=== PATIENT | male | born 1955 | race Caucasian/White ===

== ENCOUNTER 2016-11-09 13:01 | Inpatient (IN) | payer OTHER ==
[2016-11-09] MEDS ORDERED: Aspirin Low Dose CHEW TAB* 81 MG PO ONE (13:28)
[2016-11-09 14:00] LABS: Hematocrit 44 % (42-52); Hemoglobin 14.6 g/dl (14.0-18.0); Mean Corpuscular HGB Conc 34 g/dl (31-36); Mean Corpuscular Hemoglobin 31 pg (27-31); Mean Corpuscular Volume 93 fL (80-94); Mean Platelet Volume 8 um3 (7.4-10.4); Red Blood Count 4.68 10^6/ul (4.0-5.4); Red Cell Distribution Width 14 % (10.5-15); White Blood Count 10.6 10^3/ul (3.5-10.8)
[2016-11-09 14:17] LABS: Albumin 4.2 g/dL (3.2-5.2); BUN/Creatinine Ratio 15.7 (8-20); Calcium 9.8 mg/dL (8.6-10.3); EGFR African American 65.8 (>60); EGFR Non-African American 51.2 (>60); Globulin 2.9 g/dL (2-4); Potassium 4.2 mmol/L (3.5-5.0); Total Bilirubin 0.6 mg/dL (0.2-1.0); Total Protein 7.1 g/dL (6.4-8.9)
--- NOTE | 2016-11-09 14:20 | RAD ---
Indication: Weakness. Single frontal view of the chest performed at 1405 hours was reviewed. No prior study is available for comparison.. No mediastinal shift is noted. Heart is of normal size and configuration. Lung gil appear clear. Lung gil appear hyperinflated IMPRESSION: NO ACTIVE CARDIOPULMONARY DISEASE IS NOTED.
[2016-11-09] MEDS ORDERED: NS 0.9% 1000 ML* 1,000 ML IV ONE (14:34)
[2016-11-09] MEDS ORDERED: Iodixanol* (CONTRAST) 320 MG/ML 100 ML SDV IV ONE (14:36)
[2016-11-09] MEDS ORDERED: Salsalate TAB* 500 MG PO PRN (15:09)
[2016-11-09] MEDS ORDERED: BALSALAZIDE SODIUM 750 MG PO PRN (15:09)
[2016-11-09] MEDS ORDERED: Dextrose 50% Syringe 50 ML* 25 GM/50 ML SYRINGE IV PUSH PRN (15:12)
--- NOTE | 2016-11-09 15:25 | RAD ---
HISTORY: Syncope COMPARISONS: None TECHNIQUE: Multiple contiguous axial CT scans were obtained of the head without intravenous contrast. FINDINGS: HEMORRHAGE/INFARCT: There is no hemorrhage or acute infarct. MASSES/SHIFT: There is no mass or shift. EXTRA-AXIAL SPACES: There are no extra-axial fluid collections. SULCI AND VENTRICLES: The sulci and ventricles are normal in size and position for the patient's stated age. CEREBRUM: There are no focal parenchymal abnormalities. BRAINSTEM: There are no focal parenchymal abnormalities. CEREBELLUM: There are no focal parenchymal abnormalities. VESSELS: The vessels are grossly normal. PARANASAL SINUSES: The paranasal sinuses are clear. ORBITS: The orbits are unremarkable. BONES AND SOFT TISSUE: No bone or soft tissue abnormalities are noted. OTHER: None IMPRESSION: NO ACUTE INTRACRANIAL PATHOLOGY.
--- NOTE | 2016-11-09 15:37 | RAD ---
INDICATION: Chest pain. Short of breath. Evaluate for pulmonary embolus. COMPARISON: None TECHNIQUE: Axial source images were obtained from the thoracic inlet to the hemidiaphragms following administration of 94 mL Vis[address] angiographic technique was utilized. Coronal and sagittal reconstructed images were acquired. CHEST FINDINGS: Neck/thyroid: The visualized neck to include the thyroid appear normal. Chest wall: There are no acute abnormalities of the bony thorax or chest wall. There is no supraclavicular, infraclavicular, or axillary lymphadenopathy. Lungs : There are no pulmonary parenchymal masses or infiltrates. The pulmonary interstitium appears normal. There are no endobronchial lesions. Cardiomediastinal structures: There is no CT evidence of acute pulmonary embolic disease. The heart is normal in size. There is no pericardial effusion. There is no evidence of aortic aneurysm or dissection. There is no mediastinal or hilar adenopathy. The esophagus appears normal. Pleura : There are no pleural-based masses or effusions. Other: There is a small hiatal hernia.. IMPRESSION: NO CT EVIDENCE OF ACUTE PULMONARY EMBOLIC DISEASE.
[2016-11-09 16:49] LABS: Troponin I 0.01 ng/mL (<0.04)
[2016-11-09] MEDS ORDERED: Warfarin TAB(*) 5 MG PO SCH (17:00)
[2016-11-09] MEDS: Insulin LISPRO* 1 UNITS UNIT SUBCUT SCH ×2 (18:20→20:42)
[2016-11-09] MEDS: NS 0.9% 1000 ML* 1,000 ML IV SCH (19:31)
--- NOTE | 2016-11-09 20:19 | HP ---
CC: KIMMY Snyder, phone number [phone], fax number [phone]* HISTORY AND PHYSICAL: DATE OF ADMISSION: 11/09/16 CHIEF COMPLAINT: "I almost passed out." HISTORY OF PRESENT ILLNESS: The patient is a 61-year-old gentleman, who says he got pay this morning, then went to the store, and then felt he would try to mow his lawn before the rain came. He started mowing at about 10 a.m. and stopped at about 11.15 when the mower ran out of gas. He had only had a light breakfast. He go and get something to eat, then finish the job after that. He says he bent over to put his mask on the mower and then started feeling a little lightheaded and weak. He then went inside and asked his to make him a peanut butter and jelly sandwich. He tried to eat it, but something was not right. He suddenly felt nauseated and sick and had the dry heaves. He then vomited up his breakfast. His then put cold compresses on his head. He lied down on the couch and the room started spinning. He then vomited up the second time. He does not thing that he ever actually passed out but he just area. He denied any chest pain or shortness of breath or palpitations. Denies any fevers or chills. The patient currently feels well with no complaints. PAST MEDICAL HISTORY: Significant for ulcerative colitis, chronic DVT, hypertension, diet-controlled diabetes, and hypothyroidism. PAST SURGICAL HISTORY: He has no past surgical history. MEDICATIONS: His current medications are as follows: 1. Coumadin 5 mg Wednesday and Wednesday; 10 mg Wednesday, Wednesday, Wednesday, , and Wednesday. 2. Lisinopril 10 mg daily. 3. Synthroid 137 mcg daily. 4. Simvastatin 20 mg at bedtime. 5. Multivitamin 1 tablet daily. 6. Vitamin C 500 mg daily. 7. Salsalate tab 500 mg twice daily. 8. Colazal 2250 twice a day as needed. 9. Aspirin 81 mg daily. ALLERGIES: He has an allergy/adverse reaction to SULFASALAZINE. FAMILY HISTORY: Mother is alive at age 86, has a pacemaker and defibrillator. Father in his 80s, but he does not know him. SOCIAL HISTORY: He quit tobacco years ago. He used to smoke a pipe. No alcohol, quit that as well. No recreational drug use. 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 He is 3 times. His current , Claudia Ceballos , is his healthcare proxy. He has two children, a daughter and a son who he does not see. REVIEW OF SYSTEMS: A 14-point review of systems is completed with the patient. All pertinent positives and negatives are in the history of present illness, otherwise is negative. PHYSICAL EXAMINATION GENERAL: A pleasant gentleman lying in bed, in no acute distress. VITAL SIGNS: Blood pressure 114/72, pulse oxygenation 99% on 2 L, respiratory rate 15 breaths per minute, heart rate 73 beats per minute, temperature is 98.4 degrees. HEENT: Normocephalic and atraumatic. Pupils equal and reactive to light. Moist mucous membranes. NECK: Supple. No JVD, bruits, palpable thyroid, or lymphadenopathy. CHEST: Clear to auscultation and percussion bilaterally. CARDIOVASCULAR: S1, S2 appreciated. ABDOMEN: Positive bowel sounds in all 4 quadrants. Soft, nontender, and nondistended. EXTREMITIES: No cyanosis, clubbing, or edema. +2 peripheral pulses bilaterally. NEURO: Alert and oriented x3. Moves all extremities. SKIN: No rashes or abnormalities. DIAGNOSTIC STUDIES/LAB DATA: White count 10.6, hemoglobin 14.6, hematocrit 44 , platelets 192. Sodium 136, potassium 4.2, chloride 105, CO2 23, BUN 22, creat 1.40, glucose 162, lactic acid is 2.9. INR is 2.03. Chest x-ray was interpreted by Radiology as no active cardiopulmonary disease is noted. CTA of the chest was interpreted by Radiology as no CT evidence of acute pulmonary embolic disease. Brain CT was interpreted by Radiology as no acute intracranial pathology. EKG shows normal sinus rhythm at 82 beats per minute, PVCs, normal axis, first- degree AV block, no acute ST-T wave changes. ASSESSMENT AND PLAN: 1. Near syncope. I think the patient was probably just dehydrated and felt nauseated after working outside and having a light breakfast. Nevertheless, I still think he needs to be observed overnight on telemetry. We will rule him out for a myocardial infarction with serial troponins. We will get a transthoracic echo in the morning. If these all looks well, he can likely go home tomorrow. We will also hydrate him with normal saline 100 cc an hour. 2. Ulcerative colitis. Stable, continue current regimen. 3. Hypothyroidism. Stable, continue Synthroid. 4. Diabetes mellitus. Diet controlled, placed on fingersticks with sliding scale insulin. Check hemoglobin A1c. 5. DVT prophylaxis. He has chronic deep venous thrombosis and he is on Coumadin. Continue Coumadin. 6. FEN. Consistent carb diet. 7. The patient is a full code. TIME SPENT: Over 75 minutes was spent on this H and P; more than 40 minutes of which was spent in direct [id number] contact with the patient in evaluation, physical exam, counseling, and coordination of care. [id number] #: [id number] MTDD
[2016-11-09] MEDS: Atorvastatin* 10 MG TAB PO SCH (20:48)
[2016-11-10] MEDS: Levothyroxine TAB* 137 MCG TAB PO SCH (06:02)
[2016-11-10] MEDS: NS 0.9% 1000 ML* 1,000 ML IV SCH (07:12)
[2016-11-10] MEDS: Insulin LISPRO* 1 UNITS UNIT SUBCUT SCH ×4 (07:25→20:51)
[2016-11-10] MEDS ORDERED: Perflutren Lipid Microsphere* 3 ML VIAL ONE (08:45)
[2016-11-10] MEDS: Lisinopril TAB* 10 MG PO SCH (09:28)
[2016-11-10] MEDS: Multivitamins/Minerals TAB PO SCH (09:28)
[2016-11-10] MEDS: Ascorbic Acid TAB* 500 MG PO SCH (09:28)
[2016-11-10] MEDS: Aspirin EC Low Dose* 81 MG TAB.EC PO SCH (09:29)
--- NOTE | 2016-11-10 10:49 | ECHO ---
Patient: LIZZ BUTTS [facility] Rec#: [id number] : 1955 Date: 11/10/2016 Age: 61y Height: 193 cm / 76.0 in Weight: 119.3 kg / 262.9 lbs Sex: M BSA: 2.49 Room#: 452 Admit Date#: 11/09/2016 Type: Inpatient Referring: Geovanny Alanis MD Reading: Lj Knutson MD Spinning Machine Operator: Juliet Marquis RN RDCS CC: Shaka Lin MD Transthoracic Echocardiogram Indication: Syncope BP: 120/66 HR: 64 Rhythm: NSR with PVCs Findings History: HTN, DM, hypothyroidism, ulcerative colitis, chronic lower extremity DVT, former smoker Technical Comments: The study is technically limited due to poor apical windows. The study is technically limited due to patient body habitus. The study is technically limited due to the patient's smoking history. Completed at 0940. Left Ventricle: The left ventricular chamber size is normal. There is diffuse global hypokinesis of the left ventricle. There is mild to moderately decreased left ventricular systolic function. The estimated ejection fraction is 40-45%. There is no consistent Doppler evidence of clinically significant diastolic dysfunction. Left Atrium: The left atrium is mildly dilated. Right Ventricle: The right ventricular cavity size is normal. The right ventricular global systolic function is low normal. Right Atrium: The right atrium is mildly dilated. Aortic Valve: The aortic valve is trileaflet. The aortic valve leaflets are mildly thickened. There is aortic annular calcification. There is a trace of aortic regurgitation. There is no evidence of aortic stenosis. Mitral Valve: The mitral valve leaflets are mildly thickened. There is prolapse of the anterior leaflet of the mitral valve. There is mild to moderate mitral regurgitation. The mitral regurgitant jet is posteriorly directed. The mitral regurgitant jet is laterally directed. There is no evidence of mitral stenosis. Tricuspid Valve: The tricuspid valve leaflets are normal. There is trace tricuspid regurgitation. Unable to estimate the right ventricular systolic pressure. There is no tricuspid stenosis. Pulmonic Valve: The pulmonic valve structure is not well visualized. There is a trace pulmonic regurgitation. There is no pulmonic stenosis. Pericardium: There is no significant pericardial effusion. A pericardial fat pad is visualized. Aorta: There is no dilatation of the ascending aorta. There is no dilatation of the aortic arch. There is no dilation of the aortic root. Pulmonary Artery: The main pulmonary artery is not well visualized. Venous: The inferior vena cava appears normal in size. There is a greater than 50% respiratory change in the inferior vena cava dimension. Contrast: Definity was used to optimize study. A total of 4 ml of Definity was administered IV to enhance endocardial border definition. Conclusions Mild to moderate global hypokinesis of the left ventricle is observed. The visually estimated ejection fraction is 40-45%. The left atrium is mildly dilated. There is prolapse of the anterior leaflet of the mitral valve. There is mild to moderate mitral regurgitation. The mitral regurgitant jet is posteriorly directed. The mitral regurgitant jet is laterally directed. There is trace tricuspid regurgitation. The right atrium is mildly dilated. There is a trace of aortic regurgitation. PVCs are noted during the study. No reports of prior studies are offered for comparison. Measurements Name Value Normal Range RVIDd (AP) 2D 2.9 cm (0.9 - 2.6) RAd ISD 4CH 5.3 cm (3.4 - 4.9) RA (A4C)W 4.6 cm (2.9 - 4.6) IVSd (2D) 1 cm (0.6 - 1) LVPWd (2D) 1 cm (0.6 - 1) LVIDd (2D) 5.3 cm (3.6 - 5.4) LVIDs (2D) 4.2 cm - LV FS (2D) 21 % (25 - 45) Aortic Annulus 2.5 cm (1.4 - 2.6) Ao root diameter (2D) 3.3 cm (2.1 - 3.5) Ascending Ao 3 cm (2.1 - 3.4) Aortic arch 2.7 cm (1.8 - 3.4) LA dimension (AP) 2D 3.2 cm (2.3 - 3.8) LAd ISD 4CH 5.2 cm (2.9 - 5.3) LA ISD 4CH W 5 cm (2.5 - 4.5) Name Value Normal Range LA ESV SP 4CH (A/L) 91 ml - LA ESV SP 2CH (A/L) 73 ml - LA ESV BP (A/L) 88 ml - LA ESV BP (A/L) index 35.2 ml/m2 - LA ESV SP 4CH (MOD) 85 ml - LA ESV SP 2CH (MOD) 68 ml - Name Value Normal Range MV E-wave Vmax 0.97 m/sec - MV deceleration time 222 msec - MV A-wave Vmax 1 m/sec - MV E:A ratio 0.96 ratio - LV septal e' Vmax 0.09 m/sec - LV lateral e' Vmax 0.11 m/sec - LV E:e' septal ratio 10.8 ratio - LV E:e' lateral ratio 8.8 ratio - Name Value Normal Range AV Vmax 1.4 m/sec - AV VTI 30.9 cm - AV peak gradient 7.8 mmHg - AV mean gradient 3.9 mmHg - LVOT Vmax 0.92 m/sec - LVOT VTI 20 cm - LVOT peak gradient 3.4 mmHg - LVOT mean gradient 2.1 mmHg - FINA Vmax 0.92 m/sec - Name Value Normal Range IVC diameter 1.8 cm - Name Value Normal Range PV Vmax 0.71 m/sec -
--- NOTE | 2016-11-10 16:46 | PN ---
Subjective Date of Service: 11/10/16 Interval History: pt feels well today, but recalled that it was a second episode of exertional near syncope in the past month Objective Active Medications: Ascorbic Acid (Vitamin C Tab*) 500 mg PO DAILY COUNT INCLUDES THE [facility] Last Admin: 11/10/16 09:28 Dose: 500 mg Aspirin (Aspirin Ec Low Dose*) 81 mg PO DAILY COUNT INCLUDES THE [facility] Last Admin: 11/10/16 09:29 Dose: 81 mg Atorvastatin Calcium (Lipitor*) 10 mg PO BEDTIME COUNT INCLUDES THE [facility] Last Admin: 11/09/16 20:48 Dose: 10 mg Balsalazide (Colazal Cap(Nf)) 2,250 mg PO BID PRN; Protocol PRN Reason: PAIN - ABDOMINAL Dextrose (D50w Syringe 50 Ml*) 12.5 gm IV PUSH .FOR FS < 60 - SS PRN PRN Reason: FS < 60 Insulin Human Lispro (Humalog*) 0 units SUBCUT ACHS COUNT INCLUDES THE [facility] PRN Reason: Protocol Last Admin: 11/10/16 16:40 Dose: Not Given Levothyroxine Sodium (Synthroid Tab*) 137 mcg PO 0600 COUNT INCLUDES THE [facility] Last Admin: 11/10/16 06:02 Dose: 137 mcg Lisinopril (Prinivil Tab*) 10 mg PO DAILY COUNT INCLUDES THE [facility] Last Admin: 11/10/16 09:28 Dose: 10 mg Multivitamins/Minerals (Theragran/Minerals Tab*) 1 tab PO DAILY COUNT INCLUDES THE [facility] Last Admin: 11/10/16 09:28 Dose: 1 tab Salsalate (Disalcid*) 500 mg PO BID PRN PRN Reason: PAIN/INFLAMMATION Warfarin Sodium (Coumadin Tab(*)) 5 mg PO MOSA COUNT INCLUDES THE [facility] PRN Reason: Protocol Last Admin: 11/09/16 17:07 Dose: 5 mg Warfarin Sodium (Coumadin Tab(*)) 10 mg PO SuTuWeThFr@1700 COUNT INCLUDES THE [facility] PRN Reason: Protocol Last Admin: 11/10/16 16:37 Dose: 10 mg Vital Signs 11/09/16 11/10/16 11/10/16 19:31 00:49 04:37 Temperature 98.5 F 97.9 F 97.8 F Pulse Rate 79 71 65 Respiratory 17 16 16 Rate Blood Pressure 137/64 111/56 120/66 (mmHg) O2 Sat by Pulse 97 100 100 Oximetry 11/10/16 11/10/16 11/10/16 07:25 09:18 09:47 Temperature 97 F Pulse Rate 77 77 Respiratory 15 15 15 Rate Blood Pressure 120/74 120/74 (mmHg) O2 Sat by Pulse 100 100 Oximetry 11/10/16 11/10/16 11:30 16:00 Temperature 97.5 F 98.0 F Pulse Rate 70 76 Respiratory 16 17 Rate Blood Pressure 109/82 127/77 (mmHg) O2 Sat by Pulse 97 98 Oximetry Oxygen Devices in Use Now: None Appearance: 61 yo m in nAd, aAOx3 Eyes: No Scleral Icterus, PERRLA Ears/Nose/Mouth/Throat: NL Teeth, Lips, Gums, Mucous Membranes Moist Neck: NL Appearance and Movements; NL JVP, Trachea Midline Respiratory: Symmetrical Chest Expansion and Respiratory Effort, Clear to Auscultation Cardiovascular: NL Sounds; No Murmurs; No JVD, RRR Abdominal: NL Sounds; No Tenderness; No Distention, No Hepatosplenomegaly Lymphatic: No Cervical Adenopathy Extremities: No Edema Skin: No Rash or Ulcers, No Nodules or Sclerosis Neurological: Alert and Oriented x 3, NL Muscle Strength and Tone Result Diagrams: 11/09/16 13:42 11/09/16 13:42 Additional Lab and Data: Lab Results 11/09/16 11/09/16 11/09/16 Range/Units 13:42 13:42 13:42 WBC 10.6 (3.5-10.8) 10^3/ul RBC 4.68 (4.0-5.4) 10^6/ul Hgb 14.6 (14.0-18.0) g/dl Hct 44 (42-52) % MCV 93 (80-94) fL MCH 31 (27-31) pg MCHC 34 (31-36) g/dl RDW 14 (10.5-15) % Plt Count 192 (150-450) 10^3/ul MPV 8 (7.4-10.4) um3 Neut % (Auto) 87.5 H (38-83) % Lymph % (Auto) 7.3 L (25-47) % [place] % (Auto) 4.2 (1-9) % Eos % (Auto) 0.6 (0-6) % Baso % (Auto) 0.4 (0-2) % Absolute Neuts (auto) 9.3 H (1.5-7.7) 10^3/ul Absolute Lymphs (auto) 0.8 L (1.0-4.8) 10^3/ul Absolute Monos (auto) 0.4 (0-0.8) 10^3/ul Absolute Eos (auto) 0.1 (0-0.6) 10^3/ul Absolute Basos (auto) 0 (0-0.2) 10^3/ul Absolute Nucleated RBC 0.01 10^3/ul Nucleated RBC % 0.1 Sodium 136 (133-145) mmol/L Potassium 4.2 (3.5-5.0) mmol/L Chloride 105 (101-111) mmol/L Carbon Dioxide 23 (22-32) mmol/L Anion Gap 8 (2-11) mmol/L BUN 22 (6-24) mg/dL Creatinine 1.40 H (0.67-1.17) mg/dL Est GFR ( Amer) 65.8 (>60) Est GFR (Non-Af Amer) 51.2 (>60) BUN/Creatinine Ratio 15.7 (8-20) Glucose 162 H (70-100) mg/dL Lactic Acid 2.9 H* (0.5-2.0) mmol/L Calcium 9.8 (8.6-10.3) mg/dL Total Bilirubin 0.60 (0.2-1.0) mg/dL AST 16 (13-39) U/L ALT 10 (7-52) U/L Alkaline Phosphatase 43 (34-104) U/L Troponin I 0.00 (<0.04) ng/mL Total Protein 7.1 (6.4-8.9) g/dL Albumin 4.2 (3.2-5.2) g/dL Globulin 2.9 (2-4) g/dL Albumin/Globulin Ratio 1.4 (1-3) Assess/Plan/Problems-Billing Assessment: 61 yo m with h/o DM diet controlled, U.colitis, HTN, presents with exertional near syncope - Patient Problems (1) Near syncope Comment: recurrent. EF of 40-45% concerning for CAD. consulted Dr. Rodriuges who recommended stress test in AM (2) HTN (hypertension) Comment: controlled, cont ACEI (3) Ulcerative colitis Comment: not in exacerbation, cont outpatient tx. (4) DM type 2 (diabetes mellitus, type 2) Comment: diet controlled (5) DVT prophylaxis Comment: cont coumadin , INR therapeutic Status and Disposition: OBV switched to inpatient due to need for another night stay and stress tests in AM.
[2016-11-10] MEDS ORDERED: Warfarin TAB(*) 10 MG PO SCH (17:00)
[2016-11-10] MEDS: Atorvastatin* 10 MG TAB PO SCH (20:50)
--- NOTE | 2016-11-10 22:54 | CONS ---
CARDIOLOGY CONSULTATION: DATE OF CONSULT: 11/10/16 INDICATION FOR CONSULTATION: Chest pain, abnormal echocardiogram. FAMILY PHYSICIAN: Danni Peters, Family Nurse Practitioner. HISTORY OF PRESENT ILLNESS: The patient came to the hospital because of a syncopal episode at home. The patient denies any history of cardiac abnormality. The patient does have a history of diabete s and hypertension. The patient states that yesterday morning, he was mowing his lawn. He was tryi ng to hurry because there was rain that was coming in the near future. The patient got done with hi s mowing. He put the mower away. He went inside. He felt warm and uncomfortable and sat down at th e kitchen table. He was given a sandwich by his . He says he ate about half of the sandwich an d then was being shook awake by his . The patient's described that he passed out at the ta ble. The patient did not have any significant prodrome with this episode of syncope. He denied any chest pain. He denied any shortness of breath. He denied any nausea or vomiting prior to it. How er, afterwards, he had significant vomiting in the kitchen. At that time, the ambulance was called and he was brought to the emergency room. The patient denies any cardiac history. PAST MEDICAL HISTORY: Significant for ulcerative colitis, chronic DVTs, hypertension, diabetes, hyp othyroidism. PAST SURGICAL HISTORY: None. OUTPATIENT MEDICATIONS: 1. Coumadin as directed. 2. Lisinopril 10 mg a day. 3. Synthroid 137 mcg a day. 4. Simvastatin 20 mg a day. 5. Multivitamin a day. 6. Salicylate 500 mg twice a day. 7. Colazal twice a day. 8. Aspirin 81 mg a day. ALLERGIES: He is intolerant of SULFASALAZINE. FAMILY HISTORY: His mother is alive at 86 with no coronary artery disease. Father in his 80s. SOCIAL HISTORY: The patient denies tobacco. He quit many years ago. He denies alcohol use, denies any recreational drug use. 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 PHYSICAL EXAM: Height is 64 inches, weight 263 pounds, temperature 97, heart rate is 77, respirator y rate is 15, oxygen saturation 100 on room air, blood pressure 120/74. Sclerae anicteric. Orophar ynx is pink without erythema. Carotids are 2+ without bruits. JVD is normal. Thyroid is normal. Cardiac Exam: S1, S2. Distant heart sounds without any murmurs, rubs, or gallops. Lungs are clear to auscultation bilaterally. No dullness to percussion. Abdomen is obese, soft, nontender, nondist ended with normal active bowel sounds. Extremities: Show no edema. He has 2+ pulses throughout. The patient is awake, alert, and oriented. He moves all four extremities equally. DIAGNOSTIC STUDIES/LAB DATA: CBC within normal limits. Chemistries within normal limits. BUN 22, creatinine 1.4. AST and ALT within normal limits. TSH 0.68. EKG demonstrates normal sinus rhythm with nonspecific T wave abnormalities. He does have two PVCs. His EKG today demonstrate no dynamic changes. Echocardiogram: The patient had an echocardiogram today, which demonstrated mildly reduced LV systo lic function with an ejection fraction of 40% to 45%, global hypokinesis, mild to moderate mitral re gurgitation, trace tricuspid regurgitation. No previous echocardiograms for comparison. IMPRESSION: This is a 61-year-old male with a history of diabetes, hypertension, who came to the [facility] because of a syncopal episode at home. The patient states that he clearly went to the table, sat down, ate a sandwich and then had a syncop al episode. His syncopal episode was not with exertion. The patient describes a similar episode a month ago where he was out mowing his lawn, put the mower away, went up into his deck and started feeling uncomfortable and lay down on the deck until his sym ptoms passed. He did not have a true syncopal episode at that time. The patient has not had any an ginal-type symptoms. At this point, I am not exactly sure what the cause of his cardiomyopathy is. I think the patient i s at slightly increased risk for cardiac arrhythmia, although I do not think that is the cause of hi s syncopal episode. Overall, I think this is just overexertion in a warm muggy climate as yesterday morning was. RECOMMENDATION: My recommendation is that he should undergo an exercise nuclear stress test because of his cardiomyopathy and an abnormal EKG. Further recommendations pending the results of his stre ss test. [id number]/[facility] #: [id number]
[2016-11-11] MEDS: Levothyroxine TAB* 137 MCG TAB PO SCH (06:09)
[2016-11-11] MEDS: Lisinopril TAB* 10 MG PO SCH (07:43)
[2016-11-11] MEDS: Insulin LISPRO* 1 UNITS UNIT SUBCUT SCH ×4 (07:43→20:47)
[2016-11-11] MEDS ORDERED: Lisinopril TAB* 10 MG PO SCH (07:44)
[2016-11-11] MEDS: Multivitamins/Minerals TAB PO SCH (07:47)
[2016-11-11] MEDS: Aspirin EC Low Dose* 81 MG TAB.EC PO SCH (07:47)
[2016-11-11] MEDS: Ascorbic Acid TAB* 500 MG PO SCH (07:48)
--- NOTE | 2016-11-11 12:16 | RAD ---
Edited for charges. Indication: Syncope, cardiomyopathy. Myocardial perfusion scan was performed utilizing 1 day protocol. 10.9 mCi of technetium 99m tetrofosmin was injected for the rest portion of the study. Treadmill stress study was performed and 25.1 mCi of technetium 99m tetrofosmin was injected for the stress portion of the study. The maximum heart rate achieved was 90% of maximum predicted value. There is inferior wall photopenia which appears to correct on the attenuated corrected images and is consistent with diaphragmatic attenuation. There is no evidence of any fixed or reversible perfusion defects otherwise. The ejection fraction at stress is 44 %. Evaluation of wall motion demonstrates global hypokinesis. IMPRESSION: Diaphragmatic attenuation is noted. No definite reversible perfusion defects identified. Slightly decreased ejection fraction of 44%. ASSESSMENT: Intermediate risk Based on imaging criteria from ACC/AHA 2002 Guideline Update for the Management of Patients With Chronic Stable Angina Table 23. Noninvasive Risk Stratification. Reference. MTDD
[2016-11-11] MEDS: Metoprolol Tartrate TAB* 25 MG PO SCH ×2 (13:12→19:25)
--- NOTE | 2016-11-11 14:53 | PN ---
Subjective Date of Service: 11/11/16 Interval History: Pt feels well, no cP, dizziness. Seen after a stress tests. With exercise noted more PVC's and 5 beats of V. Tach in recovery. Objective Active Medications: Ascorbic Acid (Vitamin C Tab*) 500 mg PO DAILY [facility] Last Admin: 11/11/16 07:48 Dose: 500 mg Aspirin (Aspirin Ec Low Dose*) 81 mg PO DAILY [facility] Last Admin: 11/11/16 07:47 Dose: 81 mg Atorvastatin Calcium (Lipitor*) 10 mg PO BEDTIME [facility] Last Admin: 11/10/16 20:50 Dose: 10 mg Balsalazide (Colazal Cap(Nf)) 2,250 mg PO BID PRN; Protocol PRN Reason: PAIN - ABDOMINAL Dextrose (D50w Syringe 50 Ml*) 12.5 gm IV PUSH .FOR FS < 60 - SS PRN PRN Reason: FS < 60 Insulin Human Lispro (Humalog*) 0 units SUBCUT ACHS [facility] PRN Reason: Protocol Last Admin: 11/11/16 11:39 Dose: Not Given Levothyroxine Sodium (Synthroid Tab*) 137 mcg PO 0600 [facility] Last Admin: 11/11/16 06:09 Dose: 137 mcg Metoprolol Tartrate (Lopressor Tab*) 25 mg PO Q6H [facility] Last Admin: 11/11/16 13:12 Dose: 25 mg Multivitamins/Minerals (Theragran/Minerals Tab*) 1 tab PO DAILY [facility] Last Admin: 11/11/16 07:47 Dose: 1 tab Salsalate (Disalcid*) 500 mg PO BID PRN PRN Reason: PAIN/INFLAMMATION Vital Signs 11/10/16 11/10/16 11/10/16 19:21 20:00 20:26 Temperature 98.3 F Pulse Rate 71 Respiratory 17 Rate Blood Pressure 132/77 (mmHg) O2 Sat by Pulse 98 Oximetry 11/10/16 11/11/16 11/11/16 23:50 04:08 07:35 Temperature 98.0 F 97.6 F 97.4 F Pulse Rate 70 62 75 Respiratory 16 16 16 Rate Blood Pressure 103/62 117/68 102/47 (mmHg) O2 Sat by Pulse 98 99 100 Oximetry 11/11/16 11/11/16 07:40 11:33 Temperature 98.2 F Pulse Rate 70 Respiratory 16 16 Rate Blood Pressure 125/82 (mmHg) O2 Sat by Pulse 98 Oximetry Oxygen Devices in Use Now: None Appearance: 61 yo M in nAD, aAOx3 Eyes: No Scleral Icterus, PERRLA Ears/Nose/Mouth/Throat: NL Teeth, Lips, Gums, Mucous Membranes Moist Neck: NL Appearance and Movements; NL JVP, Trachea Midline Respiratory: Symmetrical Chest Expansion and Respiratory Effort, Clear to Auscultation Cardiovascular: NL Sounds; No Murmurs; No JVD, No Edema Abdominal: NL Sounds; No Tenderness; No Distention, No Hepatosplenomegaly Lymphatic: No Cervical Adenopathy Extremities: No Edema, No Clubbing, Cyanosis Skin: No Rash or Ulcers, No Nodules or Sclerosis Neurological: Alert and Oriented x 3, NL Muscle Strength and Tone Result Diagrams: 11/09/16 13:42 11/09/16 13:42 Additional Lab and Data: Lab Results 11/09/16 11/09/16 11/09/16 Range/Units 13:42 13:42 13:42 WBC 10.6 (3.5-10.8) 10^3/ul RBC 4.68 (4.0-5.4) 10^6/ul Hgb 14.6 (14.0-18.0) g/dl Hct 44 (42-52) % MCV 93 (80-94) fL MCH 31 (27-31) pg MCHC 34 (31-36) g/dl RDW 14 (10.5-15) % Plt Count 192 (150-450) 10^3/ul MPV 8 (7.4-10.4) um3 Neut % (Auto) 87.5 H (38-83) % Lymph % (Auto) 7.3 L (25-47) % [place] % (Auto) 4.2 (1-9) % Eos % (Auto) 0.6 (0-6) % Baso % (Auto) 0.4 (0-2) % Absolute Neuts (auto) 9.3 H (1.5-7.7) 10^3/ul Absolute Lymphs (auto) 0.8 L (1.0-4.8) 10^3/ul Absolute Monos (auto) 0.4 (0-0.8) 10^3/ul Absolute Eos (auto) 0.1 (0-0.6) 10^3/ul Absolute Basos (auto) 0 (0-0.2) 10^3/ul Absolute Nucleated RBC 0.01 10^3/ul Nucleated RBC % 0.1 Sodium 136 (133-145) mmol/L Potassium 4.2 (3.5-5.0) mmol/L Chloride 105 (101-111) mmol/L Carbon Dioxide 23 (22-32) mmol/L Anion Gap 8 (2-11) mmol/L BUN 22 (6-24) mg/dL Creatinine 1.40 H (0.67-1.17) mg/dL Est GFR ( Amer) 65.8 (>60) Est GFR (Non-Af Amer) 51.2 (>60) BUN/Creatinine Ratio 15.7 (8-20) Glucose 162 H (70-100) mg/dL Lactic Acid 2.9 H* (0.5-2.0) mmol/L Calcium 9.8 (8.6-10.3) mg/dL Total Bilirubin 0.60 (0.2-1.0) mg/dL AST 16 (13-39) U/L ALT 10 (7-52) U/L Alkaline Phosphatase 43 (34-104) U/L Troponin I 0.00 (<0.04) ng/mL Total Protein 7.1 (6.4-8.9) g/dL Albumin 4.2 (3.2-5.2) g/dL Globulin 2.9 (2-4) g/dL Albumin/Globulin Ratio 1.4 (1-3) Assess/Plan/Problems-Billing Assessment: 61 yo m with h/o DM diet controlled, U.colitis, HTN, presents with exertional near syncope - Patient Problems (1) Near syncope Comment: recurrent. EF of 40-45% concerning for CAD. consulted Dr. Lee who recommended stress test . Stress on 11/11/16 showed EF 44%, no reversible ischemia, but increased PVC's and short bursts of V. tach in recovery period. D/w Dr. Matthews who is considering cath. The timing of cath depends on this if PVC's can be better controlled with lopressor in the next 24H. If the PVC's are resolving with the tx with lopressor , pt potentially could go home with recommendation for outpatient cath [facility] the [place] [facility]. If he continues to have PVC's despite BB, then he will need to be monitored till cath can be done. At that point due to pt 's problems with inusrance and need of preapproval of procedures , pt may benfit from transfer to [facility] for further management. Coumadin held due to possible need for cath in the near future (2) NSVT (nonsustained ventricular tachycardia) Comment: episodes of frequent PVC's and V. tach bursts of 4-5 beats. Lytes-rechecking Started lopressor 25 mg Q6PO to control ectopy (3) HTN (hypertension) Comment: controlled, holding ACEI in light of starting lopressor (4) Ulcerative colitis Comment: not in exacerbation, cont outpatient tx. (5) DM type 2 (diabetes mellitus, type 2) Comment: diet controlled HbA1C 6.1 (6) Elevated serum creatinine Comment: Chronicity? May have been elevated due to dehydration at admission recheck creat today. (7) DVT prophylaxis Comment: INR therapeutic yesterday. coumadin held on 11/11/16 in anticipation of cath Status and Disposition: inpatient
[2016-11-11 15:16] LABS: BUN/Creatinine Ratio 12.5 (8-20); Calcium 9.6 mg/dL (8.6-10.3); EGFR African American 92.8 (>60); EGFR Non-African American 72.1 (>60); Magnesium 1.7 mg/dL (1.9-2.7); Potassium 3.8 mmol/L (3.5-5.0)
[2016-11-11] MEDS ORDERED: Magnesium Sulfate 2 GM IV* 2 GM/50 ML BAG IVPB ONE (16:00)
--- NOTE | 2016-11-11 20:19 | PN ---
Subjective Date of Service: 11/11/16 - CC: syncope, PVC's Interval History: During the exercise stress test today the patient's symptoms were reproduced, but not as strong. Pt had NSVT at peak, no awareness of palpitations. Medications Active Medications: Ascorbic Acid (Vitamin C Tab*) 500 mg PO DAILY [facility] Last Admin: 11/11/16 07:48 Dose: 500 mg Aspirin (Aspirin Ec Low Dose*) 81 mg PO DAILY [facility] Last Admin: 11/11/16 07:47 Dose: 81 mg Atorvastatin Calcium (Lipitor*) 10 mg PO BEDTIME [facility] Last Admin: 11/10/16 20:50 Dose: 10 mg Balsalazide (Colazal Cap(Nf)) 2,250 mg PO BID PRN; Protocol PRN Reason: PAIN - ABDOMINAL Dextrose (D50w Syringe 50 Ml*) 12.5 gm IV PUSH .FOR FS < 60 - SS PRN PRN Reason: FS < 60 Insulin Human Lispro (Humalog*) 0 units SUBCUT ACHS [facility] PRN Reason: Protocol Last Admin: 11/11/16 16:25 Dose: Not Given Levothyroxine Sodium (Synthroid Tab*) 137 mcg PO 0600 [facility] Last Admin: 11/11/16 06:09 Dose: 137 mcg Metoprolol Tartrate (Lopressor Tab*) 25 mg PO Q6H [facility] Last Admin: 11/11/16 19:25 Dose: 25 mg Multivitamins/Minerals (Theragran/Minerals Tab*) 1 tab PO DAILY [facility] Last Admin: 11/11/16 07:47 Dose: 1 tab Salsalate (Disalcid*) 500 mg PO BID PRN PRN Reason: PAIN/INFLAMMATION Objective Vital Signs: Temp Pulse Resp BP Pulse Ox 98.9 F 79 18 110/66 95 11/11/16 19:10 11/11/16 19:10 11/11/16 19:10 11/11/16 19:10 11/11/16 19:10 Oxygen Devices in Use Now: None Laboratory Results: 11/11/16 14:51 Laboratory Results WBC 10.6 10^3/ul (3.5-10.8) 11/09/16 13:42 RBC 4.68 10^6/ul (4.0-5.4) 11/09/16 13:42 Hgb 14.6 g/dl (14.0-18.0) 11/09/16 13:42 Hct 44 % (42-52) 11/09/16 13:42 MCV 93 fL (80-94) 11/09/16 13:42 MCH 31 pg (27-31) 11/09/16 13:42 MCHC 34 g/dl (31-36) 11/09/16 13:42 RDW 14 % (10.5-15) 11/09/16 13:42 Plt Count 192 10^3/ul (150-450) 11/09/16 13:42 MPV 8 um3 (7.4-10.4) 11/09/16 13:42 Neut % (Auto) 87.5 % (38-83) H 11/09/16 13:42 Lymph % (Auto) 7.3 % (25-47) L 11/09/16 13:42 [place] % (Auto) 4.2 % (1-9) 11/09/16 13:42 Eos % (Auto) 0.6 % (0-6) 11/09/16 13:42 Baso % (Auto) 0.4 % (0-2) 11/09/16 13:42 Absolute Neuts (auto) 9.3 10^3/ul (1.5-7.7) H 11/09/16 13:42 Absolute Lymphs (auto) 0.8 10^3/ul (1.0-4.8) L 11/09/16 13:42 Absolute Monos (auto) 0.4 10^3/ul (0-0.8) 11/09/16 13:42 Absolute Eos (auto) 0.1 10^3/ul (0-0.6) 11/09/16 13:42 Absolute Basos (auto) 0 10^3/ul (0-0.2) 11/09/16 13:42 Absolute Nucleated RBC 0.01 10^3/ul 11/09/16 13:42 Nucleated RBC % 0.1 11/09/16 13:42 INR (Anticoag Therapy) 2.21 (0.89-1.11) H 11/10/16 05:17 APTT 34.2 seconds (26.0-36.3) 11/09/16 13:42 Sodium 137 mmol/L (133-145) 11/11/16 14:51 Potassium 3.8 mmol/L (3.5-5.0) 11/11/16 14:51 Chloride 104 mmol/L (101-111) 11/11/16 14:51 Carbon Dioxide 26 mmol/L (22-32) 11/11/16 14:51 Anion Gap 7 mmol/L (2-11) 11/11/16 14:51 BUN 13 mg/dL (6-24) 11/11/16 14:51 Creatinine 1.04 mg/dL (0.67-1.17) 11/11/16 14:51 Est GFR ( Amer) 92.8 (>60) 11/11/16 14:51 Est GFR (Non-Af Amer) 72.1 (>60) 11/11/16 14:51 BUN/Creatinine Ratio 12.5 (8-20) 11/11/16 14:51 Glucose 104 mg/dL (70-100) H 11/11/16 14:51 POC Glucose (mg/dL) 161 mg/dL (74-106) H 11/11/16 16:23 Hemoglobin A1c 6.1 % (Less than 6.0) H 11/10/16 05:19 Lactic Acid 2.9 mmol/L (0.5-2.0) H* 11/09/16 13:42 Calcium 9.6 mg/dL (8.6-10.3) 11/11/16 14:51 Magnesium 1.7 mg/dL (1.9-2.7) L 11/11/16 14:51 Total Bilirubin 0.60 mg/dL (0.2-1.0) 11/09/16 13:42 AST 16 U/L (13-39) 11/09/16 13:42 ALT 10 U/L (7-52) 11/09/16 13:42 Alkaline Phosphatase 43 U/L (34-104) 11/09/16 13:42 Troponin I 0.01 ng/mL (<0.04) 11/09/16 19:06 Total Protein 7.1 g/dL (6.4-8.9) 11/09/16 13:42 Albumin 4.2 g/dL (3.2-5.2) 11/09/16 13:42 Globulin 2.9 g/dL (2-4) 11/09/16 13:42 Albumin/Globulin Ratio 1.4 (1-3) 11/09/16 13:42 TSH 0.68 mcIU/mL (0.34-5.60) 11/10/16 05:19 EKG Data: Exercise myoview: 10 mets, target HR achieved, normal BP response, no ischemic STchanges, PVC's and NSVT with exercise. Nuclear portion: EF 44%, no ischemia, inferior perfusion defect that resolves with attenuation correction. Assessment/Plan 61 yo male admitted with syncope after mowing the lawn, similar episode a month ago (near syncope). Mild to moderate CM, mild to mod MR on echo and NSVT on treadmill. PMHx: DVT's age 40-45, DM, HTN, chol, ulcerative colitis, hypothyroid disease. Additional history obtained today: At 3 yo, scarlet fever, nephritis. Mother has an ICD, details unknown. For syncope and NSVT and mild/mod CM I recommended initiation of beta brit and restress for medical management. Options for evaluation of the cardiomyopathy include cardiac catheterization, will need to come off coumodin. and Cardiac MRI. Plan: Treadmill on metoprolol in AM, if no ectopy can discharge on medical management and arrange f/u studies as an out patient. Additionally the patient needs to avoid strenuous activity. There is a large differential for the patients cardiomyopathy including ischemic , viral, genetic, autoimmune infiltrative and more. The patient's syncope could be due to NSVT but there is a differential of hypoglycemia/vagal/hypotension as well.
[2016-11-11] MEDS: Atorvastatin* 10 MG TAB PO SCH (20:59)
[2016-11-12] MEDS: Metoprolol Tartrate TAB* 25 MG PO SCH ×3 (00:59→14:15)
[2016-11-12 05:29] LABS: Hematocrit 41 % (42-52); Hemoglobin 13.8 g/dl (14.0-18.0); Mean Corpuscular HGB Conc 34 g/dl (31-36); Mean Corpuscular Hemoglobin 31 pg (27-31); Mean Corpuscular Volume 93 fL (80-94); Mean Platelet Volume 8 um3 (7.4-10.4); Red Blood Count 4.45 10^6/ul (4.0-5.4); Red Cell Distribution Width 14 % (10.5-15); White Blood Count 4.8 10^3/ul (3.5-10.8)
[2016-11-12 05:44] LABS: BUN/Creatinine Ratio 14.6 (8-20); Calcium 9.3 mg/dL (8.6-10.3); EGFR African American 101.7 (>60); EGFR Non-African American 79.1 (>60); HDL Cholesterol 31.9 mg/dL; Magnesium 1.9 mg/dL (1.9-2.7); Potassium 3.7 mmol/L (3.5-5.0)
[2016-11-12] MEDS: Levothyroxine TAB* 137 MCG TAB PO SCH (05:52)
[2016-11-12] MEDS: Ascorbic Acid TAB* 500 MG PO SCH (08:38)
[2016-11-12] MEDS: Multivitamins/Minerals TAB PO SCH (08:38)
[2016-11-12] MEDS: Aspirin EC Low Dose* 81 MG TAB.EC PO SCH (08:38)
[2016-11-12] MEDS: Insulin LISPRO* 1 UNITS UNIT SUBCUT SCH ×2 (08:50→12:18)
--- NOTE | 2016-11-12 10:06 | PN ---
Subjective Date of Service: 11/12/16 Interval History: pt feels well. From telem review PVC still present, but less frequent, no V. tach Objective Active Medications: Ascorbic Acid (Vitamin C Tab*) 500 mg PO DAILY [facility] Last Admin: 11/12/16 08:38 Dose: 500 mg Aspirin (Aspirin Ec Low Dose*) 81 mg PO DAILY [facility] Last Admin: 11/12/16 08:38 Dose: 81 mg Atorvastatin Calcium (Lipitor*) 10 mg PO BEDTIME [facility] Last Admin: 11/11/16 20:59 Dose: 10 mg Balsalazide (Colazal Cap(Nf)) 2,250 mg PO BID PRN; Protocol PRN Reason: PAIN - ABDOMINAL Dextrose (D50w Syringe 50 Ml*) 12.5 gm IV PUSH .FOR FS < 60 - SS PRN PRN Reason: FS < 60 Insulin Human Lispro (Humalog*) 0 units SUBCUT ACHS [facility] PRN Reason: Protocol Last Admin: 11/12/16 08:50 Dose: Not Given Levothyroxine Sodium (Synthroid Tab*) 137 mcg PO 0600 [facility] Last Admin: 11/12/16 05:52 Dose: 137 mcg Metoprolol Tartrate (Lopressor Tab*) 25 mg PO Q6H [facility] Last Admin: 11/12/16 08:37 Dose: 25 mg Multivitamins/Minerals (Theragran/Minerals Tab*) 1 tab PO DAILY [facility] Last Admin: 11/12/16 08:38 Dose: 1 tab Salsalate (Disalcid*) 500 mg PO BID PRN PRN Reason: PAIN/INFLAMMATION Vital Signs 11/11/16 11/11/16 11/11/16 11:33 15:23 15:30 Temperature 98.2 F Pulse Rate 70 Respiratory 16 24 11 Rate Blood Pressure 125/82 (mmHg) O2 Sat by Pulse 98 Oximetry 11/11/16 11/11/16 11/11/16 15:40 15:50 15:58 Temperature 98.7 F Pulse Rate 72 Respiratory 13 19 18 Rate Blood Pressure 105/67 (mmHg) O2 Sat by Pulse 98 Oximetry 11/11/16 11/11/16 11/11/16 16:00 16:10 16:20 Temperature Pulse Rate Respiratory 21 26 24 Rate Blood Pressure (mmHg) O2 Sat by Pulse Oximetry 11/11/16 11/11/16 11/11/16 16:30 16:40 16:50 Temperature Pulse Rate Respiratory 21 20 16 Rate Blood Pressure (mmHg) O2 Sat by Pulse Oximetry 11/11/16 11/11/16 11/11/16 17:00 19:10 19:40 Temperature 98.9 F Pulse Rate 79 Respiratory 28 18 18 Rate Blood Pressure 110/66 (mmHg) O2 Sat by Pulse 95 Oximetry 11/11/16 11/11/16 11/11/16 22:30 22:40 22:50 Temperature Pulse Rate Respiratory 16 16 16 Rate Blood Pressure (mmHg) O2 Sat by Pulse Oximetry 11/11/16 11/11/16 11/11/16 23:00 23:10 23:20 Temperature Pulse Rate Respiratory 17 16 18 Rate Blood Pressure (mmHg) O2 Sat by Pulse Oximetry 11/11/16 11/11/16 11/11/16 23:30 23:40 23:50 Temperature Pulse Rate Respiratory 16 17 18 Rate Blood Pressure (mmHg) O2 Sat by Pulse Oximetry 11/12/16 11/12/16 11/12/16 00:00 00:10 00:20 Temperature Pulse Rate Respiratory 18 0 15 Rate Blood Pressure (mmHg) O2 Sat by Pulse Oximetry 11/12/16 11/12/16 11/12/16 00:30 00:40 00:49 Temperature 98.8 F Pulse Rate 75 Respiratory 19 10 18 Rate Blood Pressure 105/63 (mmHg) O2 Sat by Pulse 98 Oximetry 11/12/16 11/12/16 11/12/16 00:50 01:00 01:10 Temperature Pulse Rate Respiratory 16 14 15 Rate Blood Pressure (mmHg) O2 Sat by Pulse Oximetry 11/12/16 11/12/16 11/12/16 01:20 01:30 01:40 Temperature Pulse Rate Respiratory 18 0 17 Rate Blood Pressure (mmHg) O2 Sat by Pulse Oximetry 11/12/16 11/12/16 11/12/16 01:50 02:00 02:10 Temperature Pulse Rate Respiratory 25 6 17 Rate Blood Pressure (mmHg) O2 Sat by Pulse Oximetry 11/12/16 11/12/16 11/12/16 02:20 02:30 02:40 Temperature Pulse Rate Respiratory 11 8 20 Rate Blood Pressure (mmHg) O2 Sat by Pulse Oximetry 11/12/16 11/12/16 11/12/16 02:50 03:00 03:10 Temperature Pulse Rate Respiratory 17 14 19 Rate Blood Pressure (mmHg) O2 Sat by Pulse Oximetry 11/12/16 11/12/16 11/12/16 03:20 03:30 03:40 Temperature Pulse Rate Respiratory 17 22 9 Rate Blood Pressure (mmHg) O2 Sat by Pulse Oximetry 11/12/16 11/12/16 11/12/16 03:50 04:00 04:04 Temperature 98.8 F Pulse Rate 78 Respiratory 5 8 16 Rate Blood Pressure 107/67 (mmHg) O2 Sat by Pulse 100 Oximetry 11/12/16 11/12/16 11/12/16 04:10 04:20 04:30 Temperature Pulse Rate Respiratory 13 19 18 Rate Blood Pressure (mmHg) O2 Sat by Pulse Oximetry 11/12/16 11/12/16 11/12/16 04:40 04:50 05:00 Temperature Pulse Rate Respiratory 11 0 0 Rate Blood Pressure (mmHg) O2 Sat by Pulse Oximetry 11/12/16 11/12/16 11/12/16 05:10 05:20 05:30 Temperature Pulse Rate Respiratory 18 19 18 Rate Blood Pressure (mmHg) O2 Sat by Pulse Oximetry 11/12/16 11/12/16 11/12/16 05:40 05:50 06:00 Temperature Pulse Rate Respiratory 11 20 17 Rate Blood Pressure (mmHg) O2 Sat by Pulse Oximetry 11/12/16 11/12/16 11/12/16 06:10 06:20 06:30 Temperature Pulse Rate Respiratory 19 40 12 Rate Blood Pressure (mmHg) O2 Sat by Pulse Oximetry 11/12/16 06:40 Temperature Pulse Rate Respiratory 20 Rate Blood Pressure (mmHg) O2 Sat by Pulse Oximetry Oxygen Devices in Use Now: None Appearance: 61 yo m in nAd, AAOx3 Eyes: No Scleral Icterus, PERRLA Ears/Nose/Mouth/Throat: NL Teeth, Lips, Gums, Mucous Membranes Moist Neck: NL Appearance and Movements; NL JVP, Trachea Midline Respiratory: Symmetrical Chest Expansion and Respiratory Effort, Clear to Auscultation Cardiovascular: NL Sounds; No Murmurs; No JVD, RRR Abdominal: NL Sounds; No Tenderness; No Distention Lymphatic: No Cervical Adenopathy Extremities: No Edema, No Clubbing, Cyanosis Skin: No Rash or Ulcers, No Nodules or Sclerosis Neurological: Alert and Oriented x 3, NL Muscle Strength and Tone Result Diagrams: 11/12/16 05:13 11/12/16 05:13 Additional Lab and Data: Lab Results 11/09/16 11/09/16 11/09/16 Range/Units 13:42 13:42 13:42 WBC 10.6 (3.5-10.8) 10^3/ul RBC 4.68 (4.0-5.4) 10^6/ul Hgb 14.6 (14.0-18.0) g/dl Hct 44 (42-52) % MCV 93 (80-94) fL MCH 31 (27-31) pg MCHC 34 (31-36) g/dl RDW 14 (10.5-15) % Plt Count 192 (150-450) 10^3/ul MPV 8 (7.4-10.4) um3 Neut % (Auto) 87.5 H (38-83) % Lymph % (Auto) 7.3 L (25-47) % [place] % (Auto) 4.2 (1-9) % Eos % (Auto) 0.6 (0-6) % Baso % (Auto) 0.4 (0-2) % Absolute Neuts (auto) 9.3 H (1.5-7.7) 10^3/ul Absolute Lymphs (auto) 0.8 L (1.0-4.8) 10^3/ul Absolute Monos (auto) 0.4 (0-0.8) 10^3/ul Absolute Eos (auto) 0.1 (0-0.6) 10^3/ul Absolute Basos (auto) 0 (0-0.2) 10^3/ul Absolute Nucleated RBC 0.01 10^3/ul Nucleated RBC % 0.1 Sodium 136 (133-145) mmol/L Potassium 4.2 (3.5-5.0) mmol/L Chloride 105 (101-111) mmol/L Carbon Dioxide 23 (22-32) mmol/L Anion Gap 8 (2-11) mmol/L BUN 22 (6-24) mg/dL Creatinine 1.40 H (0.67-1.17) mg/dL Est GFR ( Amer) 65.8 (>60) Est GFR (Non-Af Amer) 51.2 (>60) BUN/Creatinine Ratio 15.7 (8-20) Glucose 162 H (70-100) mg/dL Lactic Acid 2.9 H* (0.5-2.0) mmol/L Calcium 9.8 (8.6-10.3) mg/dL Total Bilirubin 0.60 (0.2-1.0) mg/dL AST 16 (13-39) U/L ALT 10 (7-52) U/L Alkaline Phosphatase 43 (34-104) U/L Troponin I 0.00 (<0.04) ng/mL Total Protein 7.1 (6.4-8.9) g/dL Albumin 4.2 (3.2-5.2) g/dL Globulin 2.9 (2-4) g/dL Albumin/Globulin Ratio 1.4 (1-3) Assess/Plan/Problems-Billing Assessment: 61 yo m with h/o DM diet controlled, U.colitis, HTN, presents with exertional near syncope - Patient Problems (1) Near syncope Comment: recurrent. EF of 40-45% concerning for CAD. consulted Dr. Lee who recommended stress test . Stress on 11/11/16 showed EF 44%, no reversible ischemia, but increased PVC's and short bursts of V. tach in recovery period. D/w Dr. Matthews who is considering cath. Treadmill test when on lopressor today to determine the timing and urgency of cath (2) NSVT (nonsustained ventricular tachycardia) Comment: episodes of frequent PVC's and V. tach bursts of 4-5 beats. Resolving when on lopressor Started lopressor 25 mg Q6PO to control ectopy on 11/11/16 (3) HTN (hypertension) Comment: controlled, holding ACEI in light of new lopressor tx (4) Ulcerative colitis Comment: not in exacerbation, cont outpatient tx. (5) DM type 2 (diabetes mellitus, type 2) Comment: diet controlled HbA1C 6.1 (6) Elevated serum creatinine Comment: Elevated due to dehydration at admission-MARIIA due to dehydration Resolved (7) DVT prophylaxis Comment: coumadin held on 11/11/16 in anticipation of cath INR 1.8 today Status and Disposition: inpatient
[2016-11-12 12:54] VITALS: BP 104/70
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
--- NOTE | 2016-11-17 09:52 | ED ---
Bar Morris Alok, scribed for Gus Arreguin MD on 11/09/16 at 1439 . Syncope/Near Syncope - HPI Summary HPI Summary: 61M presents to the ED following a period of unresponsiveness after mowing the lawn. Pt states he was mowing the lawn for about an hour and a half when his tomato grader ran out of gas, prompting him to come inside. Pt was next found slumped over and unresponsive by his for a few minutes before waking up. Pt states he hadn't eaten since much earlier in the morning. Pt notes SOB for a few seconds and diaphoresis after mowing the lawn. Pt vomited once today after his syncope-like episode. Pt denies CP currently or at any point today. Pt denies fever or diarrhea. PMHx includes HTN, DM, HLD, DVT. Pt has been taking anti-coagulants since 2003 and denies any missed doses. Pt is a former tobacco/ ETOH user. - History Of Current Complaint Chief Complaint: EDWeakness Time Seen by Provider: 11/09/16 13:24 Hx Obtained From: Patient Onset/Duration: Lasting Minutes Context: Witnessed Activity At Onset: Exertion Associated Head Trauma: No Aggravating Factor(s): Nothing Alleviating Factor(s): Nothing Associated Signs And Symptoms: Diaphoresis, Shortness Of Breath, Vomiting - Allergies/Home Medications Allergies/Adverse Reactions: Allergies Allergy/AdvReac Type Severity Reaction Status Date / Time Sulfasalazine Allergy Hives Verified 11/09/16 13:12 Home Medications: Home Medications Ascorbic Acid TAB* [Vitamin C TAB*] 500 mg PO DAILY 11/09/16 [History Confirmed 11/09/16] Aspirin EC Low Dose* [Ecotrin EC Low Dose 81 MG*] 81 mg PO DAILY 11/09/16 [ History Confirmed 11/09/16] Balsalazide Sodium CAP(NF) [Colazal CAP(NF)] 2,250 mg PO BID PRN 11/09/16 [ History Confirmed 11/09/16] Levothyroxine TAB* [Synthroid TAB*] 137 mcg PO DAILY 11/09/16 [History Confirmed 11/09/16] Lisinopril TAB* [Prinivil TAB*] 10 mg PO DAILY 11/09/16 [History Confirmed 11/09] Multivitamins/Minerals TAB* [Theragran/minerals TAB*] 1 tab PO DAILY 11/09/16 [ History Confirmed 11/09/16] Salsalate TAB* [Disalcid*] 500 mg PO BID PRN 11/09/16 [History Confirmed ] Simvastatin (NF) [Zocor (NF)] 20 mg PO BEDTIME 11/09/16 [History Confirmed 11/09] Warfarin TAB(*) [Coumadin TAB(*)] 5 mg PO MOSA 11/09/16 [History Confirmed 11/09] Warfarin TAB(*) [Coumadin TAB(*)] 10 mg PO SUTUWETHFR 11/09/16 [History Confirmed 11/09/16] PMH/Surg Hx/FS Hx/Imm Hx Endocrine/Hematology History: Reports: Hx Diabetes Cardiovascular History: Reports: Hx Deep Vein Thrombosis, Hx Hypercholesterolemia, Hx Hypertension Infectious Disease History: No Infectious Disease History: Denies: Traveled Outside the [place] in Last 30 Days - Family History Known Family History: Negative: Cardiac Disease - Social History Occupation: Retired Lives: With Family Alcohol Use: Former ETOH drinker Smoking Status (MU): Former Smoker Review of Systems Positive: Skin Diaphoresis. Negative: Fever, Chills Negative: Erythema Negative: Sore Throat Negative: Chest Pain Positive: Shortness Of Breath. Negative: Cough Positive: Vomiting, Nausea. Negative: Abdominal Pain, Diarrhea Negative: dysuria, hematuria Negative: Myalgia, Edema Negative: Rash Neurological: Other - Negative: Dizziness All Other Systems Reviewed And Are Negative: Yes Physical Exam - Summary Physical Exam Summary: Constitutional: Well-developed, Well-nourished, Alert. (-) Distressed Skin: Warm, Dry HENT: Normocephalic; Atraumatic Eyes: Conjunctiva normal Neck: Musculoskeletal ROM normal neck. (-) JVD, (-) Stridor, (-) Tracheal deviation Cardio: Rhythm regular, rate normal, Heart sounds normal; Intact distal pulses; The pedal pulses are 2+ and symmetric. Radial pulses are 2+ and symmetric. (-) Murmur Pulmonary/Chest wall: Effort normal. (-) Respiratory distress, (-) Wheezes, (-) Rales Abd: Soft, (-) Tenderness, (-) Distension, (-) Guarding, (-) Rebound Musculoskeletal: (-) Edema Lymph: (-) Cervical adenopathy Neuro: Alert, Oriented x3 Psych: Mood and affect Normal Triage Information Reviewed: Yes Vital Signs On Initial Exam: Initial Vitals Temp Pulse Resp BP Pulse Ox 97.4 F 73 17 110/64 98 11/09/16 13:06 11/09/16 13:06 11/09/16 13:06 11/09/16 13:06 11/09/16 13:06 Vital Signs Reviewed: Yes Diagnostics - Vital Signs Vital Signs Temp Pulse Resp BP Pulse Ox 11/09/16 14:18 99 11/09/16 14:00 71 18 114/72 99 11/09/16 13:30 69 17 113/65 100 11/09/16 13:14 16 155/116 11/09/16 13:11 74 15 96 11/09/16 13:10 98.4 F 76 19 110/64 98 11/09/16 13:06 97.4 F 73 17 110/64 98 - Laboratory Lab Results: Lab Results 11/09/16 11/09/16 11/09/16 Range/Units 13:42 13:42 13:42 WBC 10.6 (3.5-10.8) 10^3/ul RBC 4.68 (4.0-5.4) 10^6/ul Hgb 14.6 (14.0-18.0) g/dl Hct 44 (42-52) % MCV 93 (80-94) fL MCH 31 (27-31) pg MCHC 34 (31-36) g/dl RDW 14 (10.5-15) % Plt Count 192 (150-450) 10^3/ul MPV 8 (7.4-10.4) um3 Neut % (Auto) 87.5 H (38-83) % Lymph % (Auto) 7.3 L (25-47) % [place] % (Auto) 4.2 (1-9) % Eos % (Auto) 0.6 (0-6) % Baso % (Auto) 0.4 (0-2) % Absolute Neuts (auto) 9.3 H (1.5-7.7) 10^3/ul Absolute Lymphs (auto) 0.8 L (1.0-4.8) 10^3/ul Absolute Monos (auto) 0.4 (0-0.8) 10^3/ul Absolute Eos (auto) 0.1 (0-0.6) 10^3/ul Absolute Basos (auto) 0 (0-0.2) 10^3/ul Absolute Nucleated RBC 0.01 10^3/ul Nucleated RBC % 0.1 Sodium 136 (133-145) mmol/L Potassium 4.2 (3.5-5.0) mmol/L Chloride 105 (101-111) mmol/L Carbon Dioxide 23 (22-32) mmol/L Anion Gap 8 (2-11) mmol/L BUN 22 (6-24) mg/dL Creatinine 1.40 H (0.67-1.17) mg/dL Est GFR ( Amer) 65.8 (>60) Est GFR (Non-Af Amer) 51.2 (>60) BUN/Creatinine Ratio 15.7 (8-20) Glucose 162 H (70-100) mg/dL Lactic Acid 2.9 H* (0.5-2.0) mmol/L Calcium 9.8 (8.6-10.3) mg/dL Total Bilirubin 0.60 (0.2-1.0) mg/dL AST 16 (13-39) U/L ALT 10 (7-52) U/L Alkaline Phosphatase 43 (34-104) U/L Troponin I 0.00 (<0.04) ng/mL Total Protein 7.1 (6.4-8.9) g/dL Albumin 4.2 (3.2-5.2) g/dL Globulin 2.9 (2-4) g/dL Albumin/Globulin Ratio 1.4 (1-3) Result Diagrams: 11/09/16 13:42 11/09/16 13:42 Lab Statement: Any lab studies that have been ordered have been reviewed, and results considered in the medical decision making process. - CT Brain CT CT Interpretation: Positive (See Comments) - IMPRESSION: NO ACUTE INTRACRANIAL PATHOLOGY. CT Interpretation Completed By: Radiologist Chest/Thorax CTA CT Interpretation: Positive (See Comments) - IMPRESSION: NO CT EVIDENCE OF ACUTE PULMONARY EMBOLIC DISEASE. CT Interpretation Completed By: Radiologist - EKG 1317 Cardiac Rate: Bradycardia - 82 bpm EKG Rhythm: Sinus Bradycardia EKG Interpretation: No STEMI. LBBB possibly new; No old EKG for comparison Course/Dx - Diagnoses Provider Diagnoses: Syncope - Physician Notifications Discussed Care of Patient With: Geovanny Alanis - Will admit pt to [facility] Time Discussed With Above Provider: 14:42 Discharge - Discharge Plan Condition: Stable Disposition: ADMITTED TO [facility] documentation as recorded by the Bar borrego Alok accurately reflects the service I personally performed and the decisions made by Rodríguez mccarthy Jerry, MD.
== END 2016-11-12 15:47 | disposition home or self-care (01) | DRG 923 ==
LOC: ED 13:01 → MEDTELE 15:12 → OBSVTOIN 11-10 16:45
PROVIDERS: ADMIT Internal Medicine; ATTEND Internal Medicine
PROC: 4A12XM4 Monitoring of Cardiac Stress, External Approach (ICD-10-PCS; principal; 2016-11-10)
DX: T67.5XXA Heat exhaustion, unspecified, initial encounter (principal); I47.2 Ventricular tachycardia; N17.9 Acute kidney failure, unspecified; I42.9 Cardiomyopathy, unspecified; I82.509 Chronic embolism and thrombosis of unspecified deep veins of unspecified lower extremity; K51.90 Ulcerative colitis, unspecified, without complications; I08.3 Combined rheumatic disorders of mitral, aortic and tricuspid valves; E86.0 Dehydration; I10 Essential (primary) hypertension; E11.9 Type 2 diabetes mellitus without complications; E03.9 Hypothyroidism, unspecified; Z88.2 Allergy status to sulfonamides; Z82.49 Family history of ischemic heart disease and other diseases of the circulatory system; Z87.891 Personal history of nicotine dependence; E78.00 Pure hypercholesterolemia, unspecified; Z79.82 Long term (current) use of aspirin; Z79.01 Long term (current) use of anticoagulants; Y92.009 Unspecified place in unspecified non-institutional (private) residence as the place of occurrence of the external cause; W28.XXXA Contact with powered lawn mower, initial encounter
CPT/HCPCS: 36415; 70450; 71010; 71275; 78452; 80048; 80053; 80061; 82947; 83036; 83605; 83735; 84443; 84484; 85025; 85610; 85730; 87040; 93005; 93017; 93306; A9270-GY; A9502; C8929; G0378; Q9967

== ENCOUNTER 2017-08-27 11:57 | Emergency (ER) | payer BC, OTHER ==
[2017-08-27 12:14] VITALS: BP 125/86
--- NOTE | 2017-08-27 13:31 | RAD ---
HISTORY: Fall, lateral patellar pain, trauma COMPARISONS: None VIEWS: 4, Frontal, lateral, axial, and oblique views of the right knee FINDINGS: BONE DENSITY: Normal. BONES: There is no displaced fracture. JOINTS: There is advanced tricompartmental osteoarthritis. There is no suprapatellar joint effusion or lipohemarthrosis. ALIGNMENT: There is no dislocation. SOFT TISSUES: Unremarkable. OTHER FINDINGS: None. IMPRESSION: OSTEOARTHRITIS. NO ACUTE OSSEOUS INJURY. IF SYMPTOMS PERSIST, RECOMMEND REPEAT IMAGING.
--- NOTE | 2017-08-27 13:32 | RAD ---
HISTORY: Lateral shoulder pain, trauma COMPARISONS: None VIEWS: 4, Frontal internal rotation, external rotation, outlet, and axillary views of the left shoulder FINDINGS: BONE DENSITY: Normal. BONES: There is no displaced fracture. JOINTS: There is osteoarthritis of the AC joint. ALIGNMENT: There is no dislocation. SOFT TISSUES: Unremarkable. OTHER FINDINGS: None. IMPRESSION: OSTEOARTHRITIS. NO ACUTE OSSEOUS INJURY. IF SYMPTOMS PERSIST, RECOMMEND REPEAT IMAGING.
[2017-08-27] MEDS ORDERED: Tetan/Diph/Pertus SYR(Tdap)* 0.5 ML SYR(BOOSTRIX) use SYR IM ONE (14:04)
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
== END 2017-08-27 14:36 | disposition home or self-care (01) ==
LOC: ED 11:57
DX: S80.01XA Contusion of right knee, initial encounter (principal); S81.011A Laceration without foreign body, right knee, initial encounter; W19.XXXA Unspecified fall, initial encounter; Y92.9 Unspecified place or not applicable; Z79.01 Long term (current) use of anticoagulants; E11.9 Type 2 diabetes mellitus without complications; E78.00 Pure hypercholesterolemia, unspecified; I10 Essential (primary) hypertension; Z86.718 Personal history of other venous thrombosis and embolism; Z87.891 Personal history of nicotine dependence; M19.012 Primary osteoarthritis, left shoulder
CPT/HCPCS: 90471; 90715; 99282

== ENCOUNTER 2017-12-22 06:51 | Emergency (ER) | payer BC, OTHER ==
[2017-12-22] MEDS ORDERED: cloNIDine TAB* 0.1 MG PO ONE (07:36)
--- NOTE | 2017-12-22 08:08 | ED ---
Throat Pain/Nasal Congestion - HPI Summary HPI Summary: Pt is a 62 y/o male who presents to the ED c/o epistaxis. He states he began to have a nosebleed in his left nostril at 4:30, and packed his nostril himself. Pain is described as a 3/10 in severity and aching. Pt is on Coumadin for a DVT , and has HLD and HTN. He denies any trauma to his nose, and does not normally get nosebleeds. Pt has two cotton swabs with a small amount of blood on them and stringy blood clots. - History of Current Complaint Chief Complaint: EDEpistaxis Hx Obtained From: Patient Onset/Duration: Sudden Onset, Lasting Hours - 4:30, Resolved Cough: None Related History: Other (Noted In Comments) - Coumadin for DVT - Allergies/Home Medications Allergies/Adverse Reactions: Allergies Allergy/AdvReac Type Severity Reaction Status Date / Time sulfasalazine Allergy Hives Verified 12/22/17 06:56 PMH/Surg Hx/FS Hx/Imm Hx Endocrine/Hematology History: Reports: Hx Diabetes, Hx Thyroid Disease - Hypothyroid Cardiovascular History: Reports: Hx Deep Vein Thrombosis, Hx Hypercholesterolemia, Hx Hypertension, Hx Syncope, Other Cardiovascular Problems /Disorders - LVH, EF 44% GI History: Reports: Other GI Disorders - colitis Musculoskeletal History: Reports: Hx Arthritis Sensory History: Reports: Hx Contacts or Glasses Denies: Hx Hearing Aid Opthamlomology History: Reports: Hx Contacts or Glasses Neurological History: Reports: Hx CVA Infectious Disease History: No Infectious Disease History: Denies: Traveled Outside the [place] in Last 30 Days - Family History Known Family History: Negative: Cardiac Disease - Social History Alcohol Use: None Hx Substance Use: No Substance Use Type: Reports: None Hx Tobacco Use: Yes Smoking Status (MU): Former Smoker Review of Systems Negative: Fever Positive: Epistaxis All Other Systems Reviewed And Are Negative: No Physical Exam - Summary Physical Exam Summary: Appearance: Alert, conversive, nontoxic appearing Skin: Warm, dry, no mottling, no rashes, no contusions HEENT: EOMI, PERRL, moist mucous membranes, gauze in left nare, no active bleeding Neck: No masses on the neck, supple Respiratory: Clear to auscultation, breath sounds present, no rales, no rhonchi , no wheezes Cardiovascular: RRR, pulses are symmetrical in both lower and upper extremities Abdomen: Soft, non-tender Bowel Sounds: Present Musculoskeletal: No CVA tenderness, no obvious deformity, moving all extremities in a grossly normal manner Neurological: A&Ox3, CN II-XII Intact, moving all extremities symmetrically Psychiatric: Normal affect and mood Triage Information Reviewed: Yes Vital Signs On Initial Exam: Initial Vitals Temp Pulse Resp BP Pulse Ox 97.4 F 82 20 172/68 98 12/22/17 06:53 12/22/17 06:53 12/22/17 06:53 12/22/17 06:53 12/22/17 06:53 Vital Signs Reviewed: Yes Diagnostics - Vital Signs Vital Signs Temp Pulse Resp BP Pulse Ox 12/22/17 07:42 150/59 12/22/17 07:34 56 137/78 96 12/22/17 07:06 65 96 12/22/17 07:04 70 170/86 97 12/22/17 06:53 97.4 F 82 20 172/68 98 - Laboratory Result Diagrams: 12/22/17 07:50 12/22/17 07:50 Lab Statement: Any lab studies that have been ordered have been reviewed, and results considered in the medical decision making process. Re-Evaluation - Re-Evaluation First Eval Re-Evaluation Time: 08:38 Change: Unchanged Comment: Pulled out the nasal tissue to the medial septum bilaterally. Nasal mucosa is red and irritated. Blood counts are great, INR is 2.77. Pt is not supratherapeutic. He was instructed to use a Vaseline-based ointment to keep nasal mucosa moist, take BP medications, use a cool mist humidifier at night, and follow up with his PCP. EENT Course/Dx - Course Course Of Treatment: Pt is a 62 y/o male who presents to the ED c/o epistaxis of his left nostril since 4:30, and packed his nostril himself. Pt is on Coumadin for a DVT, and has HLD and HTN. He denies any trauma to his nose, and does not normally get nosebleeds. Pt has two cotton swabs with a small amount of blood on them and stringy blood clots. A physical exam revealed gauze in left nare and no active bleeding. Upon re-evaluation, the nasal tissue was pulled out to the medial septum bilaterally, and the nasal mucosa was red and irritated. Blood counts are great, INR is 2.77. Pt is not supratherapeutic. He was instructed to use a Vaseline-based ointment to keep nasal mucosa moist, take BP medications, use a cool mist humidifier at night. Final dx is epistaxis. Pt is discharged and will follow up with his PCP. Pt is agreeable with this plan. - Diagnoses Provider Diagnoses: Epistaxis Discharge - Sign-Out/Discharge Documenting (check all that apply): Patient Departure - Discharge - Discharge Plan Condition: Stable Disposition: HOME Patient Education Materials: Nosebleed (ED) Referrals: Shaka Lin MD [Primary Care Provider] - 3 Days Additional Instructions: Take your blood pressure medications as previously instructed. use a cool midst humidifier at night. use vaseline to your nasal mucosa to keep membranes moist. avoid blowing your nose. follow up with your doctor. return if worse or any new symptoms. - Billing Disposition and Condition Condition: STABLE Disposition: Home - Attestation Statements Document Initiated by Scribe: Yes Documenting Scribe: Caryl Vázquez Provider For Whom Scribe is Documenting (Include Credential): Nancy Mallory MD Scribe Attestation: Caryl Morris scribed for Nancy Mallory MD on 12/22/17 at 0851. Scribe Documentation Reviewed: Yes Provider Attestation: The documentation as recorded by the Caryl borrego accurately reflects the service I personally performed and the decisions made by me, Nancy Mallory MD
[2017-12-22 08:09] LABS: ABS Basophils 0 10^3/ul (0-0.2); ABS Eosinophils 0.1 10^3/ul (0-0.6); ABS Lymphocytes 0.8 10^3/ul (1.0-4.8); ABS Monocytes 0.3 10^3/ul (0-0.8); ABS Nucleated RBC 0 10^3/ul; Hematocrit 42 % (42-52); Hemoglobin 13.9 g/dl (14.0-18.0); Lymphocyte % 14.7 % (25-47); Mean Corpuscular HGB Conc 33 g/dl (31-36); Mean Corpuscular Hemoglobin 31 pg (27-31); Mean Corpuscular Volume 93 fL (80-94); Mean Platelet Volume 8.3 um3 (7.4-10.4); Nucleated Red Blood Cells % 0.1; Platelet Count 203 10^3/ul (150-450); Red Blood Count 4.51 10^6/ul (4.00-5.40); Red Cell Distribution Width 14 % (10.5-15); White Blood Count 5.2 10^3/ul (3.5-10.8)
[2017-12-22 08:19] LABS: EGFR Non-African American 81.8 (>60)
[2017-12-22 08:25] LABS: INR 2.77 (0.77-1.02)
[2017-12-22 09:06] VITALS: BP 146/78
== END 2017-12-22 09:05 | disposition home or self-care (01) ==
LOC: ED 06:51
DX: R04.0 Epistaxis (principal); Z86.718 Personal history of other venous thrombosis and embolism; Z79.01 Long term (current) use of anticoagulants; Z88.2 Allergy status to sulfonamides; Z87.891 Personal history of nicotine dependence
CPT/HCPCS: 36415; 80053; 85025; 85610; 85730; 99283

== ENCOUNTER 2019-01-03 10:50 | Observation (INO) | payer OTHER ==
--- NOTE | 2019-01-03 11:46 | ED ---
Syncope/Near Syncope - HPI Summary HPI Summary: This patient is a 63 year old M presenting to [facility] with a chief complaint of near syncope since 12/29/18. On 12/29/18, pt was digging holes and around 1200 pt reported he felt diaphoresis, vision blurriness, lost his balance and fell. Then on 01/02/19, pt was putting in a deck. While he was working, he felt like he was going to lose consciousness, and reports his vision turned completely hughes. Pt was on ladder and had to sit down afterword. 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 Patient reports tightness in chest beginning after coming to ED (dull throbbing). Patient denies SOB, edema in legs, N/V/D, bleeding. Pt has a PMHx of heart issues, and 2 years ago, pt had palpitations in his heart, and a mitral valve prolapse. Pt saw Dr. Lee. Pt has a PMHx of DVT, colitis, diabetes, and HTN. Pt is on warfarin. Pt went to outpatient clinic today and was sent to the ED. Medications reviewed. Allergies noted - History Of Current Complaint Chief Complaint: EDChestPainROMI Time Seen by Provider: 01/03/19 11:33 Hx Obtained From: Patient Onset/Duration: Gradual Onset, Lasting Days, Resolved Timing: Intermittent Episode Lasting Context: Witnessed Activity At Onset: Exertion Associated Head Trauma: No Aggravating Factor(s): Nothing Alleviating Factor(s): Spontaneous Resolution Associated Signs And Symptoms: Chest Pain, Other - neg : SOB, edema in legs, N/V /D, bleeding Related History: Similar Episode/Dx as - 2 years ago - Allergies/Home Medications Allergies/Adverse Reactions: Allergies Allergy/AdvReac Type Severity Reaction Status Date / Time sulfasalazine Allergy Hives Verified 12/22/17 06:56 Home Medications: Home Medications Atorvastatin* [Lipitor*] 40 mg PO DAILY 01/03/19 [History Confirmed 01/03/19] PMH/Surg Hx/FS Hx/Imm Hx Endocrine/Hematology History: Reports: Hx Diabetes, Hx Thyroid Disease - Hypothyroid Cardiovascular History: Reports: Hx Deep Vein Thrombosis, Hx Hypercholesterolemia, Hx Hypertension, Hx Syncope, Other Cardiovascular Problems /Disorders - LVH, EF 44% GI History: Reports: Other GI Disorders - colitis Musculoskeletal History: Reports: Hx Arthritis Sensory History: Reports: Hx Contacts or Glasses Denies: Hx Hearing Aid Opthamlomology History: Reports: Hx Contacts or Glasses Neurological History: Reports: Hx CVA Infectious Disease History: No Infectious Disease History: Denies: Traveled Outside the [place] in Last 30 Days - Family History Known Family History: Negative: Cardiac Disease - Social History Occupation: Employed Full-time Lives: With Family Alcohol Use: None Hx Substance Use: No Substance Use Type: Reports: None Hx Tobacco Use: Yes Smoking Status (MU): Former Smoker Review of Systems Positive: Skin Diaphoresis Positive: Blurred Vision Positive: Chest Pain Negative: Shortness Of Breath Negative: Vomiting, Diarrhea, Nausea Negative: Edema Positive: Syncope All Other Systems Reviewed And Are Negative: Yes Physical Exam - Summary Physical Exam Summary: Constitutional: Well-developed, Well-nourished, Alert. (-) Distressed Skin: Warm, Dry HENT: Normocephalic; Atraumatic Eyes: Conjunctiva normal Neck: Musculoskeletal ROM normal neck. (-) JVD, (-) Stridor, (-) Tracheal deviation Cardio: Rhythm regular, rate normal, Heart sounds normal; Intact distal pulses; The pedal pulses are 2+ and symmetric. Radial pulses are 2+ and symmetric. (-) Murmur Pulmonary/Chest wall: Effort normal. (-) Respiratory distress, (-) Wheezes, (-) Rales Abd: Soft, (-) tenderness, (-) Distension, (-) Guarding, (-) Rebound Musculoskeletal: (-) Edema Lymph: (-) Cervical adenopathy Neuro: Alert, Oriented x3 Psych: Mood and affect Normal Triage Information Reviewed: Yes Vital Signs On Initial Exam: Initial Vitals Temp Pulse Resp BP Pulse Ox 98.3 F 83 20 156/56 98 01/03/19 11:00 01/03/19 11:00 01/03/19 11:00 01/03/19 11:00 01/03/19 11:00 Vital Signs Reviewed: Yes Diagnostics - Vital Signs Vital Signs Temp Pulse Resp BP Pulse Ox 01/03/19 11:00 98.3 F 83 20 156/56 98 - Laboratory Result Diagrams: 01/03/19 11:59 01/03/19 11:59 Lab Statement: Any lab studies that have been ordered have been reviewed, and results considered in the medical decision making process. - Radiology CXR Radiology Interpretation Completed By: Radiologist Summary of Radiographic Findings: CXR reveals, per radiologist, IMPRESSION: NO EVIDENCE FOR ACTIVE CARDIOPULMONARY DISEASE. ED physician has reviewed this radiology report. - CT Chest/Thorax CTA CT Interpretation Completed By: Radiologist Summary of CT Findings: Chest/Thorax CTA reveals, per radiologist IMPRESSION: # . Mildly limited CT pulmonary angiogram without compelling evidence for pulmonary embolism. #. Mild cardiomegaly. No evidence for pulmonary edema. ED physician has reviewed this radiology report. - EKG 1051 Cardiac Rate: NL - 75 bpm EKG Rhythm: Sinus Rhythm Summary of EKG Findings: An EKG at 10:51 reveals sinus rhythm 75 bpm, multiple PVCs, Q-waves in V1-V3, ST-depression in V4-V6. Re-Evaluation - Re-Evaluation First Eval Re-Evaluation Time: 13:06 Comment: Discussed results with pt. Course/Dx Course Of Treatment: Patient is here with 2 episodes of exertional syncope. Patient had an EKG which showed ST depressions in the lateral leads. Patient had a normal troponin and BNP here. Patient had a negative chest x-ray. Patient elevated d-dimer in the setting of known clotting risks a CT is performed with no PE. Patient had an echocardiogram 2016 which showed mitral valve prolapse and global left surgical hypokinesis. Patient had cardiomyopathy at that time. Given patient's exertional syncope, known cardiac disease, EKG changes, patient was admitted hospital for further workup. - Diagnoses Provider Diagnoses: Syncope - Physician Notifications Discussed Care of Patient With: Shabnam Goldstein Time Discussed With Above Provider: 14:28 Instructed by Provider To: Other - Discussed case with Dr. Goldstein, who accepts pt for admision Discharge ED - Sign-Out/Discharge Documenting (check all that apply): Patient Departure - Admit Patient Received Moderate/Deep Sedation with Procedure: No - Discharge Plan Condition: Stable Disposition: HOME - Billing Disposition and Condition Condition: STABLE Disposition: Home - Attestation Statements Document Initiated by Scribe: Yes Documenting Scribe: Cindy Claudio Provider For Whom Scribe is Documenting (Include Credential): Clem Roberts MD Scribe Attestation: Cindy Morris, scribed for Clem Roberts MD on 01/03/19 at 1837. Scribe Documentation Reviewed: Yes Provider Attestation: The documentation as recorded by the scribe, Cindy Claudio accurately reflects the service I personally performed and the decisions made by me, Clem Roberts MD Status of Scribe Document: Viewed
[2019-01-03 12:07] LABS: ABS Eosinophils 0.1 10^3/ul (0-0.6); ABS Lymphocytes 1.1 10^3/ul (1.0-4.8); ABS Monocytes 0.4 10^3/ul (0-0.8); ABS Neutrophils 4.1 10^3/ul (1.5-7.7); Hematocrit 43 % (42-52); Hemoglobin 14.8 g/dL (14.0-18.0); Mean Corpuscular HGB Conc 34 g/dL (31-36); Mean Corpuscular Hemoglobin 32 pg (27-31); Mean Corpuscular Volume 92 fL (80-94); Mean Platelet Volume 7.8 fL (7.4-10.4); Platelet Count 204 10^3/uL (150-450); Red Blood Count 4.71 10^6 /uL (4.18-5.48); Red Cell Distribution Width 14 % (10-15); White Blood Count 5.6 10^3/uL (3.5-10.8)
[2019-01-03 12:31] LABS: Albumin 4.3 g/dL (3.2-5.2); Albumin/Globulin Ratio 1.9 (1-3); BUN/Creatinine Ratio 17.8 (8-20); Calcium 9.7 mg/dL (8.6-10.3); EGFR African American 83.9 (>60); EGFR Non-African American 69.4 (>60); Globulin 2.3 g/dL (2-4); Potassium 4.3 mmol/L (3.5-5.0); Total Bilirubin 0.8 mg/dL (0.2-1.0); Total Protein 6.6 g/dL (6.4-8.9)
[2019-01-03 12:35] LABS: INR 2.18 (0.82-1.09)
[2019-01-03] MEDS ORDERED: Iodixanol* (CONTRAST) 320 MG/ML 100 ML SDV IV ONE (13:29)
[2019-01-03] MEDS ORDERED: Warfarin TAB(*) 5 MG PO SCH (17:00)
[2019-01-03 18:41] LABS: Troponin I 0.01 ng/mL (<0.04)
[2019-01-03] MEDS ORDERED: Atorvastatin* 40 MG TAB PO SCH (21:00)
[2019-01-03 21:33] LABS: Magnesium 1.9 mg/dL (1.9-2.7); TSH (Thyroid Stimulating Horm) 0.7 mcIU/mL (0.34-5.60)
--- NOTE | 2019-01-03 23:27 | HP ---
CC: Dr. Lin * HISTORY AND PHYSICAL: DATE OF ADMISSION: 01/03/19 PROVIDER: Yoli Escoto NP PRIMARY CARE PROVIDER: Dr. Lin. ATTENDING PHYSICIAN WHILE IN THE HOSPITAL: Dr. Shabnam Goldstein * (dictated by Yoli Escoto NP). CHIEF COMPLAINT: 1. Presyncope. 2. Chest pain. HISTORY OF PRESENT ILLNESS: Mr. Ceballos is a 63-year-old gentleman with a past medical history significant for hypertension, hyperlipidemia, colitis, history of DVT in the right leg, diabetes type 2, hypothyroidism who presented to the emergency room for evaluation after a presyncopal episode yesterday. The patient reports that at approximately 12 p.m. 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 He reports that he nearly fainted per his coworker. He also reported that he had a throbbing sensation in his chest with associated pressure. He reports that his friend assisted him off the ladder and got him into a seated position. He reports ice on the back of his neck and he does report that the throbbing, pulsating sensation, and pressure in his chest lasted for approximately 15 to 20 minutes and then subsided. The patient reports that he had a similar episode last as well when he was digging post holes. He said during digging the holes again he had a similar episode, where he got pressure and throbbing in his chest, felt dizzy and lightheaded, had to sit down and symptoms then resolved. The patient reports that approximately 2 years ago he had a syncopal episode with exertion, at that time he had a stress test and an echocardiogram. According to prior records, his nuclear stress test was read as low risk. He did have an echocardiogram that showed [id number] hypokinesis of the left ventricle with an EF of 40% to 45% and [id number] mitral regurgitation. The patient reports that he has had no further episodes today. He denies any dizziness or lightheadedness today. Denies any recent fever, chills. Denies any cough, hemoptysis, or shortness of breath. Denies any vomiting. He did report some nausea associated with his symptoms yesterday. Denies any diarrhea, abdominal pain, hematuria, dysuria, focal weakness, or sensory loss. Denies any visual complaints, dysphagia, arthralgias, myalgias, rashes, lesions, open sores, psychosis, or anxiety. Due to his presyncopal episode with throbbing chest pain , Hospital Medicine was asked to see in consult for admission. PAST MEDICAL HISTORY: Significant for hypertension, hyperlipidemia, colitis, DVT in the right leg, diabetes, hypothyroidism. PAST SURGICAL HISTORY: None. HOME MEDICATIONS: Include: 1. Atorvastatin 40 mg p.o. daily. 2. Colazal 2250 p.o. b.i.d. 3. Coumadin 5 mg p.o. daily. 4. Metoprolol 50 mg p.o. daily. 5. Aspirin 81 mg p.o. daily. 6. Levothyroxine 137 mcg p.o. daily. 7. Ascorbic acid 500 mg p.o. daily. 8. Multivitamin 1 tablet p.o. daily. ALLERGIES: SULFASALAZINE. FAMILY HISTORY: No reported history of coronary artery disease, diabetes, history of disease from brain cancer. SOCIAL HISTORY: The patient reports that he quit smoking in 2003. Prior to that, he smoked a pipe for approximately 30 years. No alcohol or illicit drug use. He is . He lives with his . Surrogate decision maker in the event he is unable to make his own decisions is his . REVIEW OF SYSTEMS: A 14-point review of systems was completed. All pertinent positives were mentioned in the HPI. PHYSICAL EXAMINATION GENERAL: At this time, Mr. Ceballos is alert and oriented male, resting on the stretcher in the emergency room. He is in no acute distress. VITAL SIGNS: Blood pressure 134/75, heart rate 72, respirations 18, O2 saturation 97%, temperature was 98.5. HEENT: Head is atraumatic, normocephalic. Eyes: EOMs are intact. Sclerae anicteric and not pale. Oral mucosa appeared to be moist. NECK: Supple. LUNGS: Clear to auscultation bilaterally. No wheezes, rales, or rhonchi. CARDIAC: S1, S2. Regular rate and rhythm. No rubs or gallops. ABDOMEN: Soft and nontender. Bowel sounds are present x4. EXTREMITIES: He is able to move all 4 extremities. Pedal pulses are +2 bilaterally. NEUROLOGIC: He is awake, alert, and oriented x3. Speech is clear. Thought process is intact. There is no gross focal deficits. SKIN: Intact. LABORATORY DATA AND DIAGNOSTIC STUDIES: WBCs are 5.6, RBCs 4.71, hemoglobin 14.8, hematocrit was 43, platelet count was 204. INR is 2.18. D-dimer is 401. Sodium 138, potassium 4.3, chloride 106, carbon dioxide was 29, anion gap was 3, BUN was 19, creatinine 1.07, glucose was 101, calcium was 9.7. Total bilirubin 0.80, ASTs were 18, ALTs were 14, alkaline phosphatase was 54. Troponin 0.00 x2 and then 0.01. BNP was 68. He had a chest x-ray, radiologist's impression: No evidence of acute cardiopulmonary disease. He had a CT of the chest that showed mildly limited pulmonary angiogram without compelling evidence for a pulmonary embolism, mild cardiomegaly, no evidence of pulmonary edema. He had an electrocardiogram, which showed sinus rhythm at a rate of 75 with PVCs , does have minimal ST depression in V4, 5, and 6. ASSESSMENT AND PLAN: Mr. Ceballos is a 63-year-old male with a past medical history significant for hypertension, hyperlipidemia, history of deep vein thrombosis, type 2 diabetes, hypothyroidism with a history of exertional syncope in 2017, who presented to the emergency room with complaints of presyncopal episode yesterday associated with exertion. He will be admitted under observation for: 1. Presyncope. The patient did have a presyncopal episode with exertion yesterday. He has a prior history of similar episode. I will get a transthoracic echocardiogram and a nuclear stress test. The patient will continue on metoprolol, baby aspirin as previously prescribed, and atorvastatin 40. We will continue to trend his troponins. He will be monitored on telemetry for any arrhythmias. I will also get a set of orthostatic vital signs. 2. Chest pain. The patient did experience 2 episodes of throbbing chest pain associated with exertion. I will get a nuclear stress test to evaluate for ischemia as the cause for his throbbing chest pain. We will continue to trend his troponins. I will repeat an EKG in the a.m. I will also check a magnesium as the patient does have frequent PVCs on his EKGs on the monitor and replace as needed to keep his magnesium at or above 2 and his potassium close to 4. 3. Hyperlipidemia. He will continue on atorvastatin 40 mg p.o. daily. 4. Hypothyroid. He will continue on levothyroxine 137 mcg p.o. daily. 5. History of deep vein thrombosis. The patient will continue on Coumadin 5 mg p.o. daily. 6. Type 2 diabetes. The patient is currently diet controlled with his diabetes. We will continue to monitor. I will check a hemoglobin A1c. 7. FEN. He can have a heart healthy, no caffeine diet. 8. Code status. He is a full code. 9. DVT prophylaxis. He is on Coumadin. TIME SPENT: Time spent on this admission was approximately 60 minutes, greater than half that time was spent at the bedside reviewing events leading thus far to his hospitalization, performing physical exam, and reviewing my plan of care. I have discussed this with my attending, Dr. Shabnam Goldstein; she is in agreement with my plan. YOLI ESCOTO, DANIEL [id number]/CPS #: [id number] HOA
[2019-01-04] MEDS ORDERED: Levothyroxine TAB* 137 MCG TAB PO SCH (06:00)
[2019-01-04 06:10] LABS: ABS Eosinophils 0.1 10^3/ul (0-0.6); ABS Lymphocytes 1.1 10^3/ul (1.0-4.8); ABS Monocytes 0.5 10^3/ul (0-0.8); ABS Neutrophils 3.5 10^3/ul (1.5-7.7); Eosinophil % 2.3 %; Hematocrit 39 % (42-52); Hemoglobin 13.6 g/dL (14.0-18.0); Lymphocyte % 20.3 %; Mean Corpuscular HGB Conc 35 g/dL (31-36); Mean Corpuscular Hemoglobin 32 pg (27-31); Mean Corpuscular Volume 91 fL (80-94); Mean Platelet Volume 8.1 fL (7.4-10.4); Platelet Count 166 10^3/uL (150-450); Red Blood Count 4.29 10^6 /uL (4.18-5.48); Red Cell Distribution Width 14 % (10-15); White Blood Count 5.2 10^3/uL (3.5-10.8)
[2019-01-04 06:28] LABS: Calcium 9.2 mg/dL (8.6-10.3); EGFR African American 90.7 (>60); HDL Cholesterol 32.4 mg/dL; Potassium 4.4 mmol/L (3.5-5.0)
--- NOTE | 2019-01-04 07:57 | PN ---
Subjective Date of Service: 01/04/19 Interval History: 63 y/o M with PMH of HTN, T2DM, Hyperlipidemia, DVT(on warfarin), Hypothyroidism presented for presyncope and exertional chest pain associated with prodrome of nausea, diaphoresis, dizziness. Had similar episode 1 week ago. 2 yrs ago had exertional syncope, underwent stres test which was low risk, and echo which showed global hypokinesis of LV with EF 40-45% and mild to moderate MR and prolapse of anterior leaflet of MV. No any acute event overnight. Vitals stable. has no any chest pain, palpitation or headache. feeling well and is eager to go home. Objective Active Medications: Ascorbic Acid (Vitamin C Tab*) 500 mg PO DAILY [facility] Aspirin (Aspirin Ec Tab*) 81 mg PO DAILY [facility] Atorvastatin Calcium (Lipitor*) 40 mg PO 2100 [facility] Last Admin: 01/03/19 20:29 Dose: 40 mg Influenza Virus Vaccine (Fluarix Quad [id number] Syr) 0.5 ml IM .ONCE ONE Stop: 01/04/19 09:01 Levothyroxine Sodium (Synthroid Tab*) 137 mcg PO 0600 [facility] Last Admin: 01/04/19 05:47 Dose: 137 mcg Metoprolol Succinate (Toprol Xl Tab*) 50 mg PO DAILY [facility] Multivitamins/Minerals (Theragran/Minerals Tab*) 1 tab PO DAILY [facility] Warfarin Sodium (Coumadin Tab(*)) 5 mg PO DAILY@1700 [facility]; Protocol Last Admin: 01/03/19 18:16 Dose: 5 mg Vital Signs - 8 hr 01/04/19 03:15 Temperature 98.6 F Pulse Rate 68 Respiratory 18 Rate Blood Pressure 131/68 (mmHg) O2 Sat by Pulse 99 Oximetry Oxygen Devices in Use Now: None Exam: Patient is lying on bed with no any acute distress. HEENT: Normocephalic and atraumatic Lungs: Clear with no any added sounds. Heart: S1/S2 heard with no any murmur. Abdomen: Soft, nondistended and nontender. Normal BS heard Extremity: Mild swelling on right LE. Neuro: Alert, conscious and oriented. Result Diagrams: 01/04/19 05:36 01/04/19 05:36 Assess/Plan/Problems-Billing Assessment: 63 y/o M with PMH of HTN, T2DM, Hyperlipidemia, DVT(on warfarin), Hypothyroidism presented for presyncope and exertional chest pain associated with prodrome of nausea, diaphoresis, dizziness. Had similar episode 1 week ago. 2 yrs ago had exertional syncope, underwent stres test which was low risk, and echo which showed global hypokinesis of LV with EF 40-45% and mild to moderate MR and prolapse of anterior leaflet of MV. EKG showed PVC. Planned for echo and stress test. - Patient Problems (1) Near syncope Current Visit: No Status: Acute Comment: presyncope with exertional chest pain with prodorme. Similar episode in the past Echo on 2017 showed mild to moderate LV hypokinesis with EF of 40-45% and MR. Stress test was low risk. CTA chest is normal. Stress test is low risk with no any reversible and fixed defect. Echo shows EF of 45-50%. Has some PVC. May be due to rhythm disorder or vasovagal syncope. May need cardiac event monitor or loop recorder. (2) DM type 2 (diabetes mellitus, type 2) Current Visit: No Status: Acute Comment: diet controlled HbA1C is 5.8. (3) HTN (hypertension) Current Visit: No Status: Acute Code(s): I10 - ESSENTIAL (PRIMARY) HYPERTENSION SNOMED Code(s): 10095317 Comment: controlled On metoprolol 50 mg (4) Hypothyroidism Current Visit: Yes Status: Acute Code(s): E03.9 - HYPOTHYROIDISM, UNSPECIFIED SNOMED Code(s): 90350615 Comment: On levothyroxine 137 mcg. (5) Hyperlipidemia Current Visit: Yes Status: Acute Code(s): E78.5 - HYPERLIPIDEMIA, UNSPECIFIED SNOMED Code(s): 14252303 Comment: On atorvastatin (6) DVT prophylaxis Current Visit: No Status: Acute Code(s): LKX4601 - SNOMED Code(s): 847641088 Comment: On coumadin 5 mg. has past h/o dvt. INR is therapeutic. (7) Full code status Current Visit: Yes Status: Acute Code(s): Z78.9 - OTHER SPECIFIED HEALTH STATUS SNOMED Code(s): 509922814 Status and Disposition: Inpatient. D/C today Attending: Eliana Clayton Attestation Documenting Resident: Monica Boggs Supervising Physician: Eliana Clayton Attestation: This service has been performed in part by a resident under the direction of a teaching physician.I, Eliana Clayton, performed the service, or was physically present during the critical, or roman portions of the service, furnished by the resident. I participated in the management of the patient.
[2019-01-04] MEDS ORDERED: Aspirin EC TAB* 81 MG TAB.EC PO SCH (09:00)
[2019-01-04] MEDS ORDERED: Metoprolol Succinate XL TAB* 50 MG PO SCH (09:00)
[2019-01-04] MEDS ORDERED: Influenza VAC *QUAD* 2019-20* 0.5 ML SYRINGE IM ONE (09:00)
[2019-01-04] MEDS ORDERED: Ascorbic Acid TAB* 500 MG PO SCH (09:00)
[2019-01-04] MEDS ORDERED: Multivitamins/Minerals TAB PO SCH (09:00)
[2019-01-04] MEDS ORDERED: Perflutren Lipid Microsphere* 3 ML VIAL ONE (09:45)
--- NOTE | 2019-01-04 12:20 | CONS ---
CC: Dr. Peters, [facility]; Dr. Juan Ramon Hagan, [facility] * CONSULTATION REPORT: DATE OF CONSULT: 01/04/19 ATTENDING PHYSICIAN: Dr. Anika Matthews.* (DICTATED BY FÉLIX MURRIETA NP) REASON FOR CONSULT: Near syncope, chest pain. PRIMARY PHYSICIAN: Dr. Peters, [facility]. PRIMARY CABLE TECHNICIAN: Dr. Juan Ramon Hagan, [facility]. HISTORY OF PRESENT ILLNESS: This is a pleasant 63-year-old male patient with a notable history of mild to moderate mitral regurgitation; PVCs, on beta-brit therapy; type 2 diabetes; recurrent DVT, on Coumadin therapy. He presented to [facility] on 01/03/19. 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 He was on a ladder 3 feet up when he started to develop dizziness, diaphoresis, shaking with chest pressure. Apparently, he was able to get off the ladder, sit down and lean up against the building. His boss gave him a cold compress to put around his neck. Episode lasted approximately 45 minutes in duration. He states that he did check his blood glucose because he had not eaten anything that day and it was 105. He states that he did not experience tunneled vision, which he typically does when he knows he is going to pass out. However, he also describes another episode of near syncope occurring on 12/29/18, where apparently he was digging holes around noon when he again developed diaphoresis at that time, vision blurriness and loss of balance and fall. He denies loss of consciousness at that time. Upon further review, the patient states episodes were very comparable to what occurred in 2017 when he was mowing his lawn and rushing to be drained. Shortly thereafter after having a sandwich, he developed dizziness and apparently passed out at the table which was witnessed by his . He was risk stratified with exercise nuclear stress testing at that time. Per report, normal perfusion, EF 44%. He had PVCs throughout the duration of the study with a 4-beat run of nonsustained multiform PVCs. Thus, he was started on beta- brit therapy. Episode at that time was felt to be situational due to the weather being hot and muggy and the patient rushing to mow his lawn. Since then , he has followed up with his primary buffer nickel at the [facility]. He adds that most recently in August 2018, he had an ECG and updated echocardiogram. He denies seeing an mill operator head or running an outpatient ambulatory commercial helicopter pilot. He is compliant with medications. Denies recent illness or injury. He is currently asymptomatic. Last echocardiogram, according to our medical records, was in 2016. At that time, LVEF was 40% to 45% with global hypokinesis. There was mitral valve prolapse involving the anterior leaflet with mild to moderate mitral regurgitation, trace aortic insufficiency, trace pulmonic regurgitation, and trace tricuspid regurgitation. Last ischemic evaluation, according to our medical records, is the exercise nuclear stress test in October 2016. Per report, the patient was able to exercise for 7 minutes 18 seconds achieving 10.1 METS. Resting ECG revealed normal sinus rhythm with PVCs. Normal blood pressure and heart rate response. There were no symptoms of ischemia with exercise. No ECG changes of ischemia noted. There were frequent PVCs at rest and with exercise. There were intermittently increased PVCs, couplets, triplets, and a 4-beat run of multifocal ventricular ventricular tachycardia. Again, MPI report did not reveal any fixed or reversible defects. PAST MEDICAL HISTORY: 1. Systolic heart failure. 2. PVCs. 3. Mild to moderate mitral regurgitation. 4. Mitral valve prolapse. 5. Type 2 diabetes mellitus. 6. Recurrent DVT, on oral anticoagulation. 7. Hypertension. 8. Hypothyroidism. 9. Ulcerative colitis. PAST SURGICAL HISTORY: None. HOME MEDICATIONS: Per admission med rec. ALLERGIES: He is intolerant of SULFASALAZINE. FAMILY HISTORY: Mother is alive at 86 with no history of coronary artery disease. Father in his 80s. SOCIAL HISTORY: The patient denies tobacco use; apparently, he quit many years ago. Denies alcohol use. Denies any recreational drug use. He is and lives at home with his . 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 He also states that he walks 2 to 3 times a week for 30 to 45 minutes in duration, which does sometimes involve incline. He denies any exertional chest pain with those activities. REVIEW OF SYSTEMS: All systems have been reviewed and otherwise negative except as above mentioned in the HPI. PHYSICAL EXAM: Temperature 98, pulse 77, respirations 16, blood pressure 125/68 , oxygenation 98% on room air. General: The patient is lying in bed, getting echocardiogram upon entering the room, with at the bedside, appears in no apparent distress, cooperative with the examination. A and O x3. HEENT: Head is atraumatic, normocephalic. Mucous membranes are moist. Tongue is midline. Neck: Supple. Trachea midline. No JVD. No carotid bruits. Cardiac: Normal S1 and S2. Regular rate and rhythm. There is a grade 2/5 diastolic mitral murmur auscultated underneath the left axilla. No rub or gallop. Lungs: Auscultated posteriorly, no evidence of adventitious breath sounds. Respirations nonlabored. /GI: Abdomen is protuberant, nontender, normoactive bowel sounds x4. No hepatomegaly to palpation. Extremities: No pedal edema. No clubbing. No cyanosis. Peripheral Vascular: 3+ dorsalis pedis pulse palpable bilaterally and symmetrically. 3+ bilateral radial pulses palpated bilaterally and symmetrically. DIAGNOSTIC STUDIES/LAB DATA: Blood work reviewed from 01/04/19. White count 5.2, hemoglobin 13.6, hematocrit 39, platelets 166. INR on 01/03/19 was 2.1. D -dimer 401. Sodium 139, potassium 4.4, chloride 107, carbon dioxide 28, BUN 15 , creatinine 1, glucose 120. Troponin was negative x3. Hemoglobin A1c 5.8%. TSH 0.7. Chest thorax CTA: Per radiology report, there is mildly limited CT pulmonary angiogram without compelling evidence of PE. Mild cardiomegaly. No evidence of pulmonary edema. There was unchanged mild pleural parenchymal scarring at the anterior segment of the left upper lobe peripherally compared with the 2017 exam. Negative for suspicious pulmonary lesions. ECG from 01/03/19 reviewed; sinus rhythm rate 75 with frequent PVCs. No concerning ST changes appreciated. ASSESSMENT AND PLAN: 1. Near syncope; it appears to be vasovagal in nature given the patient was working outside and rushing and had not eaten. Apparently, episode was very comparable to his previous episodes in 2017 which also involved hot humid air and the patient rushing to complete a task. The patient did develop dizziness, shakes, diaphoresis, and chest pressure. Episode lasted 45 minutes to an hour and resolved on its own. He exercises at home and denies exertional chest pain. He previously had an exercise stress test with myocardial perfusion imaging for risk stratification due to symptomatology in 2017, which did not reveal any reversible or fixed defects. It is likely vasovagal; however, we will proceed with exercise nuclear stress test, update echocardiogram, and follow. The patient has had premature ventricular contractions on telemetry, but no ventricular tachycardia appreciated. Troponins negative x3. 2. History of mild to moderate mitral regurgitation with mitral valve prolapse involving the anterior leaflet; await echocardiogram. The patient appears compensated on physical examination. Blood pressure is controlled. 3. History of systolic heart failure. Left ventricular ejection fraction of 40 % to 45% in 2017. Follows Cardiology in [place], [place]. Apparently, he had an echocardiogram in August. We will request medical records. He is compensated on physical examination. Would recommend continuing metoprolol therapy. In the past, he had a low risk exercise nuclear stress test. He denies seeing Electrophysiology in the past. 4. History of premature ventricular contractions, on metoprolol therapy. The patient does not appear to be symptomatic. There is no ventricular tachycardia appreciated on telemetry. We will follow after exercise nuclear stress test today. 5. History of hypertension. Currently, blood pressure 125/68, continue metoprolol therapy. Consider initiation of RAGINI inhibitor given history of diabetes and systolic heart failure, however, await echocardiogram. 6. Disposition, pending course. Dr. Anika Matthews has personally seen and examined the patient, agrees with the above assessment and plan. Thank you for this kind consultation. Any future questions or concerns, please do not hesitate to contact our practice. FÉLIX MURRIETA NP [id number]/[facility] #: [id number] HOA
--- NOTE | 2019-01-04 12:59 | ECHO ---
*[facility]* [place] [address] Fax #: [phone] Transthoracic Echocardiogram Patient: Cesar Ceballos : 1955 Study Date: 01/04/2019 Age: 63 Gender: M HR: 61 bpm Height: 76 in /193 cm BSA: 2.5 m^2 Weight: 264.4 lb /120.2 kg BMI: 32.3 kg/m^2 *Intrusion Analyst: * Anabel Willams [facility] *Referring Physician: * Yoli Escoto *Reading Physician: * Anika Matthews MD Indications: Chest Pain, unspecified. Syncope. History: Palpitations. Mitral prolapse. Risk factors: Former tobacco use. Hypertension. Diabetes mellitus. Conclusions Summary: - Left ventricle: The cavity size is mildly to moderately dilated. Wall thickness is normal. Systolic function is mildly to moderately reduced. The estimated ejection fraction is 45-50%. Frequent PVC's and septal dysychrony. - Right ventricle: Systolic function is normal. - All valves show good function. - Mitral valve: There is no significant regurgitation. - Compared with prior echocardiogram of 11/10/16, ejection fraction not significantly changed, mitral regurgitation previously mild to moderate, PVC's noted on 2017 study as well. Study data: Transthoracic echocardiogram. Procedure: Transthoracic echocardiography was performed. Image quality was suboptimal. The study was technically limited due to body habitus. Intravenous Definity , 4 mlswas administered. Image enhancement administered by Complete 2D, spectral Doppler, and color flow Doppler. Location: Bedside. Patient status: Observation. Patient room number: 432. Rhythm: Normal sinus rhythm with PVC's. Findings Left ventricle: The cavity size is mildly to moderately dilated. Wall thickness is normal. Systolic function is mildly to moderately reduced. The estimated ejection fraction is 45-50%. Frequent PVC's and septal dysychrony. Wall motion is normal; there are no regional wall motion abnormalities. Doppler parameters are consistent with abnormal left ventricular relaxation (grade 1 diastolic dysfunction). Right ventricle: The cavity size is normal. Systolic function is normal. Ventricular septum: Septal motion is dyssynergic. Left atrium: Not well visualized. The atrium is normal in size. Right atrium: The atrium is normal in size. Mitral valve: The leaflets are mildly thickened. There is no evidence of stenosis. There is no significant regurgitation. Aortic valve: Not well visualized. The leaflets are normal thickness. There is no evidence of stenosis. There is no significant regurgitation. Tricuspid valve: The leaflets are normal thickness. There is no evidence of stenosis. There is no significant regurgitation. Pulmonic valve: Not well visualized. Aorta: The aortic root appears normal. The aortic arch appears normal. Pericardium: There is no significant pericardial effusion. Pulmonary arteries: Not well visualized. Systemic veins: Inferior vena cava: Not well visualized. Measurements Left ventricle Value Ref Right atrium Value Ref DIMITRY, LAX (H) 6.6 cm 4.2 - SI dim, ES 4.9 cm 3.4 - 5.3 5.8 ML dim, ES, A4C 4.3 cm 2.6 - 4.4 ESD, LAX (H) 5.5 cm 2.5 - Estimated RAP 8 mm Hg --------- 4.0 FS, LAX (L) 17 % 25 - 43 Aortic valve Value Ref PW, ED, LAX 0.8 cm 0.6 - Triston diam, ED 1.7 cm --------- 1.0 Peak v, S 1.33 m/sec --------- EF (L) 35 % 52 - 72 VTI, S 24.8 cm --------- E', lat triston, TDI (L) 8.2 cm/sec >=10.0 Mean grad, S 3.0 mm Hg ---- ----- E/e', lat triston, TDI 8 -------- Peak grad, S 7.0 mm Hg ------- -- E', med triston, TDI 7.5 cm/sec >=7.0 LVOT/AV, VTI ratio 0.57 ---- ----- E/e', med triston, TDI 8 -------- KEMAL, VTI 1.80 cm^2 ------- -- E', avg, TDI 7.9 cm/sec -------- KEMAL, Vmax 1.90 cm^2 ------- -- E/e', avg, TDI 8 <=14 AR peak v 1.21 m/sec ---- ----- AR peak grad 6 mm Hg --------- LVOT Value Ref Diam, S 2.00 cm -------- Mitral valve Value Ref Area 3.1 cm^2 -------- Peak E 0.62 m/sec --------- Peak sarah, S 0.81 m/sec -------- Peak A 0.86 m/sec --------- VTI, S 14.2 cm -------- Decel time 148 ms --------- Mean grad, S 1 mm Hg -------- Peak E/A ratio 0.7 --------- SV 45 ml -------- SV/bsa 18 ml/m^2 -------- Pulmonic valve Value Ref Peak v, S 0.75 m/sec --------- Ventricular septum Value Ref Peak grad, S 2.0 mm Hg --------- IVS, ED 0.8 cm 0.6 - 1.0 Aortic root Value Ref Root diam 3.4 cm <4.5 Right ventricle Value Ref DIMITRY, LAX 2.6 cm -------- Aortic arch Value Ref DIMITRY minor ax, A4C 3.5 cm 1.9 - Arch diam 2.7 cm --------- mid 3.5 Decending aorta Value Ref Left atrium Value Ref Gabe peak sarah 0.67 m/sec --------- AP dim ED, LAX 3.7 cm -------- ML dim, A4C 4.2 cm -------- SI dim, A4C 5.3 cm -------- Vol/bsa, ES, A/L 25 ml/m^2 16 - 34 Legend: (L) and (H) mal values outside specified reference range. Prepared and electronically signed by Anika Matthews MD 01/04/2019 12:58
[2019-01-04 15:16] VITALS: BP 147/70
--- NOTE | 2019-01-04 15:44 | DS ---
CC: Shaka Lin MD, [place]; Dr. Juan Ramon Hagan, [facility]; Dr. Peters, [facility] DATE OF ADMISSION: 01/03/2019. DATE OF DISCHARGE: 01/04/2019. PRIMARY DIAGNOSIS: Syncope. SECONDARY DIAGNOSES: 1. Noninsulin dependent diabetes. 2. Recurrent DVT, on anticoagulation. 3. Hypertension. 4. Hypothyroidism. 5. History of ulcerative colitis, on Colazal. 6. Reduced ejection fraction, 50 percent. Distant history of reduced ejection fraction from 40 to 4 5 percent with no clinical signs of heart failure. 7. History of mitral valve prolapse seen on prior echo, not seen on this hospitalization. MEDICATIONS ON DISCHARGE: 1. Atorvastatin 40 mg p.o. daily. 2. Colazal 2,250 mg p.o. b.i.d. 3. Ascorbic acid 500 mg p.o. daily. 4. Aspirin 81 mg p.o. daily. 5. Levothyroxine 137 mcg p.o. daily. 6. Metoprolol Succinate 50 mg p.o. daily. 7. Multivitamin one tab p.o. daily. 8. Warfarin 5 mg daily and as per INR checks. HISTORY OF PRESENT ILLNESS AND HOSPITAL COURSE: This 63-year-old male with the above past medical hi story who presented to the emergency room on 01/03/2019 at [facility] after he developed d izziness, diaphoresis, and tremor associated with chest pressure. 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 The episode lasted about 45 minutes. He did check his blood sugar at that time as he had not eaten or dr ank much throughout the day and it was 105. He also describes another episode of near syncope on the December. Once again during exertion. Furthermore, the patient reports he has had episodes similar to this, last occurring in 2017, also during exertion. At that time in 2016, he had true syncope which was witnessed. He was seen in the hospital at that time which showed normal perf usion on exercise stress test and an ejection fraction of 44 percent. He did have multiple PVC's and thus was started on a beta brit at that time and discharge to primary cardiology follow-up in [facility] acuse at the [place]. The [place] has been following his reduced ejection fraction and PVC's with apparently r ecent ECG and echocardiogram. Because of his new presyncopal event in the setting of prior cardiac history, the patient was admitte d for observation status and his hospital course by problem is as follows: 1. Presyncope: The patient was risk stratified to nuclear medicine stress test which was performed on 01/04/2019. There was no definite fixed or reversible perfusion deficits and ejection fraction no benson was 52 percent. There was noted septal hypokinesis and echocardiogram was performed on 9 which showed frequent PVC's and septal dyssynchrony, but an estimated ejection fraction of 45 to 50 percent, also with no valvular pathology noted. Compared to last echocardiogram done in the [facility] tem, this is an improvement in ejection fraction and no noticeable valvular pathology. The patient h ad no further symptoms. He was monitored on telemetry which noted frequent PVC's, but no sustained V T or malignant arrhythmias. EKG done on admission showed sinus rhythm with several PVC's and _, but no signs of acute ischemia ultimately. The patient had no signs of reversible ischemia or new ischemic event leading to this presyncopal, although he does have underlying frequent PVC's with res t and exercise and this hospital physician did observe a four beat run of multifocal ventricular tach ycardia. Cardiology team reached out to [facility] to determine if the patient may be considered f or long-term cardiac event monitoring which the patient is willing to follow-up with shortly after georgina carvalho. Also of note, troponins were negative times three. 2. History of mild to moderate mitral regurgitation with mitral valve prolapse: This was not seen on echocardiogram done on 01/03/2019. 3. History of reduced ejection fraction: There is no clinical evidence of heart failure exacerbatio n in this hospitalization. He is on Metoprolol which will be continued. 4. History of hypertension: The patient was normotensive and will be continued on his home medicati on and Metoprolol. 5. Hypothyroidism: Home medication was continued. 6. History of DVT: The patient was therapeutically anticoagulated on admission with an INR of 2.18. Home medication was continued. 7. Hyperlipidemia: The patient's statin was continued. Overall, on the day of discharge, the patient is tolerating diet and ambulating. He has no further sy ncopal or presyncopal events. He does have above frequent PVC's and concern for underlying arrhythmi a which may be contributing to his two episodes of syncope in the last week. He has requested to fol low-up with outpatient cardiology for consideration of outpatient cardiac event monitoring and is oconnor ctioned to be out of work until he is able to do so. DISPOSITION AT THE TIME OF DISCHARGE: Stable to be returned to home. DIAGNOSTIC STUDIES: 1. Chest x-ray on 01/03/2019 shows no acute cardiopulmonary disease. 2. Chest/thorax CTA on 01/03/2019 shows no PE. 3. EKG shows sinus rhythm with frequent PVC's, but no acute ischemia. 4. Transthoracic echocardiogram done on 01/03/2019 shows an ejection fraction of 45 to 50 percent wi th no valvular pathology. 5. Nuclear medicine stress test done on 01/04/2019 shows no acute reversible area of ischemia or def ect. CONSULTATIONS DURING THIS HOSPITALIZATION: Cardiology. Their notes will be included in this dischar ge summary. ITEMS TO FOLLOW-UP ON STATUS POST DISCHARGE: Syncope: The patient has had two episodes of syncope i n the last week in the setting of history of PVC's. The patient should follow-up with the [place] and formerly [facility] tere coordinator for Cardiology [place] was contacted to see if he could be expedited into outpatient cardi ology follow-up. Copy of this discharge summary will be provided to the patient as well as rhythm str ips that documented nonsustained V-tach. Medications were not changed on this hospitalization and de ferred to primary care if any other titration is needed. TIME SPENT: Forty minutes were spent in the planning of this discharge with over half of that spent directly at the bedside of the patient providing direct patient care. Plan of care was discussed wit h the patient and his who have no further questions. This is a summary of all medical care that was given during this hospitalization. If there are any qu estions, please do not hesitate to reach out and contact me directly at which is my toña lphone number. [id number]/[facility] #: [id number]
== END 2019-01-04 16:00 | disposition home or self-care (01) ==
LOC: ED 10:50 → MEDTELE 16:27
PROVIDERS: ADMIT Internal Medicine; ATTEND Internal Medicine
DX: R55 Syncope and collapse (principal); E11.9 Type 2 diabetes mellitus without complications; I10 Essential (primary) hypertension; E03.9 Hypothyroidism, unspecified; K51.90 Ulcerative colitis, unspecified, without complications; I34.1 Nonrheumatic mitral (valve) prolapse; Z79.01 Long term (current) use of anticoagulants; Z86.718 Personal history of other venous thrombosis and embolism; E78.5 Hyperlipidemia, unspecified; Z79.82 Long term (current) use of aspirin; Z79.899 Other long term (current) drug therapy; Z87.891 Personal history of nicotine dependence; H53.8 Other visual disturbances; Z78.9 Other specified health status
CPT/HCPCS: 36415; 71046; 71275; 78452; 80048; 80053; 80061; 83036; 83735; 83880; 84443; 84484; 85025; 85379; 85610; 90472; 90686; 93005; 93017; 93306; 99284; A9270-GY; A9502; C8929; G0008; G0378; Q9967